=== PATIENT | female | born 1965 | race Caucasian/White ===

== ENCOUNTER → 2020-09-16 07:18 | Outpatient (BNVA) | payer MEDICARE, MEDICAID, SELFPAY | PROVIDERS: PCP Internal Medicine; Visit Provider Internal Medicine Endocrinology, Diabetes & Metabolism | DX: E10.65 Type 1 diabetes mellitus with hyperglycemia (principal); E10.649 Type 1 diabetes mellitus with hypoglycemia without coma; E78.5 Hyperlipidemia, unspecified; E55.9 Vitamin D deficiency, unspecified; E66.3 Overweight | CPT/HCPCS: 82947; 99212 ==

== ENCOUNTER → 2021-03-25 11:13 | Outpatient (BNVA) | payer MEDICARE, MEDICAID, SELFPAY | PROVIDERS: PCP Internal Medicine; Visit Provider Internal Medicine Endocrinology, Diabetes & Metabolism | DX: Z13.89 Encounter for screening for other disorder (principal) | CPT/HCPCS: 82947; 99212 ==

== ENCOUNTER 2021-03-25 12:17 | Outpatient (REF) | payer MEDICARE, MEDICAID, SELFPAY ==
[2021-03-25 14:32] LABS: Alanine Aminotransferase 8 U/L (0-31); Alkaline Phosphatase 79 U/L (39-117); Anion Gap 11 (12-20); Aspartate Amino Transferase 10 U/L (5-31); Bilirubin Total 0.4 mg/dL (0.0-1.0); Blood Urea Nitrogen 19 mg/dL (9-16); Calcium 10.1 mg/dL (8.4-10.2); Carbon Dioxide 27 mmol/L (22-29); Chloride 107 mmol/L (96-108); Cholesterol 175 mg/dL; Estimated Glomerular Filt Rate 55; Glucose Fasting 176 mg/dL (60-99); HDL Cholesterol 51 mg/dL; LDL Cholesterol Calculated 105 mg/dl; Potassium 4.9 mmol/L (3.3-5.1); Sodium 140 mmol/L (135-145); Total Protein 6.6 g/dL (6.5-8.0); Triglycerides 98 mg/dL
[2021-03-25 14:39] LABS: Free T4 (Free Thyroxine) 1.08 ng/dL (0.71-1.85); Thyroid Stimulating Hormone 1.69 uIU/mL (0.32-4.0)
[2021-03-25 14:50] LABS: Vitamin B12 357 pg/mL (200-900)
[2021-03-26 18:47] LABS: LDL Cholesterol Direct 108 mg/dL (<100)
== END 2021-03-25 12:18 | disposition home or self-care (01) ==
LOC: HO.10HDL 12:17
PROVIDERS: Visit Provider Internal Medicine Endocrinology, Diabetes & Metabolism
DX: E10.65 Type 1 diabetes mellitus with hyperglycemia (principal)
CPT/HCPCS: 36415; 80053; 80061; 82607; 82947; 83721; 84439; 84443; 99212

== ENCOUNTER → 2021-07-31 08:52 | Outpatient (BNVA) | payer MEDICARE, MEDICAID, SELFPAY | PROVIDERS: PCP Internal Medicine; Visit Provider Nurse Practitioner Gerontology | DX: E10.65 Type 1 diabetes mellitus with hyperglycemia (principal); E10.649 Type 1 diabetes mellitus with hypoglycemia without coma; E10.22 Type 1 diabetes mellitus with diabetic chronic kidney disease; N18.30 Chronic kidney disease, stage 3 unspecified; E78.5 Hyperlipidemia, unspecified; E55.9 Vitamin D deficiency, unspecified | CPT/HCPCS: 82947; 83036; 99212 ==

== ENCOUNTER → 2021-08-21 09:58 | Outpatient (BNVA) | payer MEDICARE, MEDICAID, SELFPAY | PROVIDERS: PCP Internal Medicine; Visit Provider Registered Nurse Diabetes Educator ==

== ENCOUNTER 2022-04-08 12:00 | Outpatient (REF) | payer MEDICARE, MEDICAID, SELFPAY ==
[2022-04-08 13:47] LABS: Alanine Aminotransferase 11 U/L (0-31); Albumin Level 4.1 g/dL (3.5-5.0); Alkaline Phosphatase 65 U/L (39-117); Anion Gap 11 (12-20); Aspartate Amino Transferase 12 U/L (5-31); Bilirubin Total 0.5 mg/dL (0.0-1.0); Blood Urea Nitrogen 11 mg/dL (9-16); Calcium 9.9 mg/dL (8.4-10.2); Carbon Dioxide 26 mmol/L (22-29); Chloride 104 mmol/L (96-108); Cholesterol 190 mg/dL; Estimated Glomerular Filt Rate > 60; Glucose Fasting 197 mg/dL (60-99); HDL Cholesterol 51 mg/dL; LDL Cholesterol Calculated 118 mg/dl; Potassium 4.5 mmol/L (3.3-5.1); Sodium 136 mmol/L (135-145); Total Protein 6.5 g/dL (6.5-8.0); Triglycerides 107 mg/dL
[2022-04-08 13:56] LABS: Free T4 (Free Thyroxine) 1.11 ng/dL (0.71-1.85); Thyroid Stimulating Hormone 1.44 uIU/mL (0.32-4.0); Vitamin D 25-OH Total 32.4 ng/mL (>30)
[2022-04-10 01:32] LABS: LDL Cholesterol Direct 112 mg/dL (<100)
== END 2022-04-08 12:01 | disposition home or self-care (01) ==
LOC: HO.LAB 12:00
PROVIDERS: PCP Internal Medicine; Visit Provider Nurse Practitioner Gerontology
DX: E10.65 Type 1 diabetes mellitus with hyperglycemia (principal); E55.9 Vitamin D deficiency, unspecified
CPT/HCPCS: 36415; 80053; 80061; 82306; 83721; 84439; 84443

== ENCOUNTER → 2022-04-14 07:48 | Outpatient (BNVA) | payer MEDICARE, MEDICAID, SELFPAY | PROVIDERS: PCP Internal Medicine; Visit Provider Internal Medicine Endocrinology, Diabetes & Metabolism | DX: E10.65 Type 1 diabetes mellitus with hyperglycemia (principal); E78.5 Hyperlipidemia, unspecified; Z96.41 Presence of insulin pump (external) (internal) | CPT/HCPCS: 82947; 83036; 99212 ==

== ENCOUNTER → 2022-04-24 11:02 | Outpatient (BNVA) | payer MEDICARE, MEDICAID, SELFPAY | PROVIDERS: PCP Internal Medicine; Visit Provider Registered Nurse Diabetes Educator | DX: E10.22 Type 1 diabetes mellitus with diabetic chronic kidney disease (principal); Z79.4 Long term (current) use of insulin; Z46.81 Encounter for fitting and adjustment of insulin pump | CPT/HCPCS: Q3014 ==

== ENCOUNTER 2022-06-26 08:34 | Outpatient (REF) | payer MEDICARE, MEDICAID, SELFPAY ==
[2022-06-26 09:35] LABS: Cholesterol 192 mg/dL; HDL Cholesterol 69 mg/dL; LDL Cholesterol Calculated 105 mg/dl; Triglycerides 91 mg/dL
== END 2022-06-26 08:35 | disposition home or self-care (01) ==
LOC: HO.LAB 08:34
PROVIDERS: PCP Internal Medicine; Visit Provider Internal Medicine Endocrinology, Diabetes & Metabolism
DX: E10.65 Type 1 diabetes mellitus with hyperglycemia (principal)
CPT/HCPCS: 36415; 80061

== ENCOUNTER → 2022-08-14 10:28 | Outpatient (BNVA) | payer MEDICARE, MEDICAID, SELFPAY | PROVIDERS: PCP Internal Medicine; Visit Provider Internal Medicine Endocrinology, Diabetes & Metabolism | DX: E10.65 Type 1 diabetes mellitus with hyperglycemia (principal); E10.649 Type 1 diabetes mellitus with hypoglycemia without coma; E10.22 Type 1 diabetes mellitus with diabetic chronic kidney disease; N18.30 Chronic kidney disease, stage 3 unspecified; K21.00 Gastro-esophageal reflux disease with esophagitis, without bleeding; E78.5 Hyperlipidemia, unspecified; E55.9 Vitamin D deficiency, unspecified; Z79.4 Long term (current) use of insulin; Z96.41 Presence of insulin pump (external) (internal); Z46.81 Encounter for fitting and adjustment of insulin pump; Z91.14 Patient's other noncompliance with medication regimen | CPT/HCPCS: 82947; 83036; 99211; 99212 ==

== ENCOUNTER 2023-06-22 15:17 | Outpatient (AMB) | payer MEDICARE, MEDICAID, SELFPAY ==
[2023-06-22 15:18] VITALS: BP 102/58; PULSE 98; BMI 25.5
--- NOTE | 2023-06-22 15:18 | MHC.OFFVIS ---
Intake Vital Signs 06/22/23 15:18 Height 5 ft 9 in Weight 172 lb 13.478 oz BMI 25.5 BP 102/58 L Blood Pressure Location Lt brachial Position Sitting Pulse 98 Pulse Source Pulse Oximeter Intake Visit Reasons: DM Intake Note: Patient present today to follow up on Type 1 Diabetes Mellitus. Patient receives DME supplies through: [facility] Medical Last Diabetic Eye exam: 2020 Last Podiatry Visit: None Random Glucose:80 mg/dl HgA1C: 9.9% [place] Machine Operator Required: No Accompanied by: Self / Same As Patient Allergies No Known Allergies [No Known Allergies*] Allergy (Verified 06/22/23 15:22) HPI HPI Comments History of Present Illness Details Patient is a 57-year-old female with DM type 1 diagnosed at age 5 who presents for management of diabetes. . Patient has no symptoms until blood glucose is down to 23mg/dl. Past medical history: Diabetes type 1, depression, CKD3 Micro and macrovascular complications: none known Diabetes medications: Humalog via Tandem pump Continuous glucose monitoring: She is currently not on a sensor. Point care downloads show 4% in target range with 96% hyperglycemia and no hypoglycemia Basal IQ on 100% Average suspensions per day 52% basal, 48% food bolus % correction bolus average daily dose 37.1 units/day Cartridge, tubing and cannula change every 6 days. Basal settings at midnight 0.90 U/H 6:00 am 0.850 U/H Active insulin is 4 hours. Carbohydrate ratio 12 am 12 10 am 12 Sensitivities 12 am 55 12 pm 55 5 pm 55 Target blood glucose is 120. She has hypoglycemia unawareness. Symptoms reported: numbness, tingling, cramping in lower extremities Hypoglycemia: multiple times a day, no symptoms. Infrequent lows Hyperglycemia: denies urinary frequency, nocturia, polydypsia Exercise: walks a mile twice a day Telephone Worker - CDE education: in the past Foster Care Case Manager: denies Dental exam: few years ago Ophthalmology evaluation: needs to see optho Laboratory Tests 12/06/18 03/25/21 03/25/21 12:15 11:36 12:21 Creatinine 1.05 Estimated GFR 55 Hgb A1c (Clinic) 7.5 H C-Peptide <0.10 L Triglycerides 98 Cholesterol 175 LDL Cholesterol Di rect LDL Cholesterol, C alc 105 HDL Cholesterol 51 TSH 1.69 Free T4 1.08 03/25/21 12:21 Creatinine Estimated GFR Hgb A1c (Clinic) C-Peptide Triglycerides Cholesterol LDL Cholesterol Di rect 108 H LDL Cholesterol, C alc HDL Cholesterol TSH Free T4 PFSH Medical History (Updated 07/31/21 @ 10:27 by ZENIA Smith) 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 Mother No problems noted. Paternal Grandmother Diabetes Social History (Updated 08/14/22 @ 10:37 by Lelia Gibson [facility]) Household Members: Significant Other and Children Household Members Other:: boyfriend, son Alcohol intake: never Patient Tobacco Use Status: Current everyday Tobacco user Tobacco use type: Cigarette Cigarettes Per Day: 18 Substance Use Type: Marijuana Physical Exam Vital Signs: Last Vital Signs Pulse 98 06/22/23 15:18 BP 102/58 L 06/22/23 15:18 BMI result Body Mass Index 25.5 Results AMB Hemoglobin A1c AMB Hemoglobin A1c 9.9 % Last Edit by Catherine Albercht on 06/22/23 15:38 Results Reviewed Results Reviewed: 06/22/23 15:27 Glucose, Whole Blood Routine Laboratory Last Values Glucose (Clinic) 80 mg/dL (60-115) 06/22/23 15:27 Assessment & Plan Assessment & Plan (1) Diabetes type 1, uncontrolled: Code(s): E10.65 - Type 1 diabetes mellitus with hyperglycemia Plan: This 57-year-old white female with a history of longstanding type 1 diabetes being managed with the T-slim X 2 pump with excellent glycemic control but poor TIRand no known microvascular or macrovascular complications but reported history of CKD Plan is to have the patient meet with the line maintenance supervisor again to initiate control IQ. We also talked about refined carbohydrate counting and entering boluses prior to eating. I did not make any changes to the insulin pump settings today. Can increase the basals at 00:00 to 1.0 units/hour at 06:00 to 0.9 units per (2) Dyslipidemia: Code(s): E78.5 - Hyperlipidemia, unspecified Plan: Admits to noncompliance with the atorvastatin. Patient will restart atorvastatin 40 mg q.d. and recheck lipid profile about 6 weeks time Orders: Orders AMB Hemoglobin A1c Today E10.22 - Type 1 diabetes mellitus with diabetic chronic kidney disease Basic Metabolic Panel Today E10.65 - Type 1 diabetes mellitus with hyperglycemia Lipid Panel Today E10.65 - Type 1 diabetes mellitus with hyperglycemia Microalbumin, Random (w Creat) Today E10.65 - Type 1 diabetes mellitus with hyperglycemia Coding Level of Care Code Est Pt Level 4 (21035) Diagnoses Diabetes type 1, uncontrolled E10.65 Dyslipidemia E78.5
[2023-06-22 15:32] LABS: Glucose, Whole Blood 80 mg/dL (60-115)
== END 2023-06-22 16:14 | disposition home or self-care (01) ==
PROVIDERS: PCP Internal Medicine; Visit Provider Internal Medicine Endocrinology, Diabetes & Metabolism
DX: E10.65 Type 1 diabetes mellitus with hyperglycemia (principal); E78.5 Hyperlipidemia, unspecified; E10.22 Type 1 diabetes mellitus with diabetic chronic kidney disease
CPT/HCPCS: 99214

== ENCOUNTER → 2023-06-22 15:17 | Outpatient (BNVA) | payer MEDICARE, MEDICAID, SELFPAY | PROVIDERS: PCP Internal Medicine; Visit Provider Internal Medicine Endocrinology, Diabetes & Metabolism | DX: E10.65 Type 1 diabetes mellitus with hyperglycemia (principal); E78.5 Hyperlipidemia, unspecified; Z96.41 Presence of insulin pump (external) (internal) | CPT/HCPCS: 82947; 83036; 99212 ==

== ENCOUNTER 2024-01-05 10:55 | Outpatient (AMB) | payer MEDICARE, MEDICAID, SELFPAY ==
[2024-01-05 10:59] VITALS: BP 104/56; PULSE 95; BMI 26.0
--- NOTE | 2024-01-05 10:59 | MHC.OFFVIS ---
Intake Vital Signs 01/05/24 10:59 Height 5 ft 9 in Weight 176 lb 2.389 oz BMI 26.0 BP 104/56 L Blood Pressure Location Lt brachial Position Sitting Pulse 95 Pulse Source Pulse Oximeter Intake Visit Reasons: [id number] Intake Note: Patient presents today to follow up on D1MT. Last Diabetic Eye exam:Over 2 years Last Podiatry Visit: Doesn't have one. Random Glucose: 62 mg/dl 11:10am rechecked 74 mg/dl 11:28am HgA1c: 7.6% Optimization Engineer Required: No Accompanied by: Self / Same As Patient Allergies No Known Allergies [No Known Allergies*] Allergy (Verified 01/05/24 11:04) HPI HPI Comments History of Present Illness Details Patient is a 58-year-old female with DM type 1 diagnosed at age 5 who presents for management of diabetes. . Patient has no symptoms until blood glucose is down to 23mg/dl. Past medical history: Diabetes type 1, depression, CKD3 Micro and macrovascular complications: none known Diabetes medications: Humalog via Tandem pump. She is using basal IQ but not control IQ Continuous glucose monitoring: Sensor download shows she is using the sensor 87.7% of time. Average glucose is 213 with G mi of 8.4%. 44% range with 56% hyperglycemia and no hypoglycemia. Pen shows elevated point cares from noon throughout the day without spikes postprandially Basal IQ on 100% Average suspensions per day 54% basal, 46% food bolus % correction bolus average daily dose 37.2 units/day Cartridge, tubing and cannula change every 6 days. Basal settings at midnight 1 U/H 6:00 am 0.9 U/H Active insulin is 4 hours. Carbohydrate ratio 12 am 12 10 am 12 Sensitivities 12 am 60 12 pm 60 5 pm 60 Target blood glucose is 120. She has hypoglycemia unawareness. Symptoms reported: numbness, tingling, cramping in lower extremities Hypoglycemia: multiple times a day, no symptoms. 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 Technical Sales Representative - CDE education: in the past Corrugator: denies Dental exam: few years ago Ophthalmology evaluation: needs to see optho Laboratory Tests 12/06/18 03/25/21 03/25/21 12:15 11:36 12:21 Creatinine 1.05 Estimated GFR 55 Hgb A1c (Clinic) 7.5 H C-Peptide <0.10 L Triglycerides 98 Cholesterol 175 LDL Cholesterol Di rect LDL Cholesterol, C alc 105 HDL Cholesterol 51 TSH 1.69 Free T4 1.08 03/25/21 12:21 Creatinine Estimated GFR Hgb A1c (Clinic) C-Peptide Triglycerides Cholesterol LDL Cholesterol Di rect 108 H LDL Cholesterol, C alc HDL Cholesterol TSH Free T4 PFSH Medical History (Updated 07/31/21 @ 10:27 by ZENIA Smith) 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 Mother No problems noted. Paternal Grandmother Diabetes Social History Household Members: Significant Other and Children Household Members Other:: boyfriend, son Alcohol intake: never Patient Tobacco Use Status: Current everyday Tobacco user Tobacco use type: Cigarette Cigarettes Per Day: 18 Substance Use Type: Marijuana Physical Exam Vital Signs: Last Vital Signs Pulse 95 01/05/24 10:59 BP 104/56 L 01/05/24 10:59 BMI result Body Mass Index 26.0 Absence of Cushingoid features. Absence of acromegalic features. Neck exam reveals nl size thyroid about 15 gms. No thyroid nodules palpable. No carotid bruits present. Lungs CTA. Heart S1 S2, Reg R/R. No M/R/ G. Skin exam reveals absence of vitiligo or acanthosis nigricans. Abdominal exam reveals Soft NT/ND with NA BS. No organomegaly present. Extrem Other: Visual exam of foot performed. No ulcerations or open lesions. No onchomycosis, no callouses.Pulses 2 + distally. Sensation intact to monofilament exam. Vibratory sensation sensed 10 seconds in right, 10 seconds in left with 128 Hz tuning fork Results AMB Hemoglobin A1c AMB Hemoglobin A1c 7.6 % Last Edit by NATHALY Oswald on 01/05/24 11:16 Results Reviewed Results Reviewed: Laboratory Last Values Glucose (Clinic) 74 mg/dL (60-115) 01/05/24 11:28 Hgb A1c (Clinic) 7.6 % (4.0-6.0) H 01/05/24 11:11 Assessment & Plan Assessment & Plan (1) Diabetes type 1, uncontrolled: Code(s): E10.65 - Type 1 diabetes mellitus with hyperglycemia Plan: This 58-year-old white female with a history of longstanding type 1 diabetes being managed with the T-slim X 2 pump with fair deteriorate glycemic control but poor TIRand no known microvascular or macrovascular complications but reported history of CKD Plan is to have the patient meet with the family educator again to initiate control IQ. We also talked about refined carbohydrate counting and entering boluses prior to eating. Can increase the basals at 06:00 to 1 units per hr. She will have her daughter help her make the change or make the change when she sees the family educator. We also talked about potentially changing the pump to a tandem Mobi or Omnipod oriLet . She will go for lipid profile and microalbumin to creatinine ratio (2) Dyslipidemia: Code(s): E78.5 - Hyperlipidemia, unspecified Plan: Admits to noncompliance with the atorvastatin. Patient will restart atorvastatin 40 mg q.d. and recheck lipid profile about 6 weeks time Orders: Orders AMB Hemoglobin A1c Today E10.22 - Type 1 diabetes mellitus with diabetic chronic kidney disease, Z13.9 - Encounter for screening, unspecified Coding Level of Care Code Est Pt Level 4 (42542) Diagnoses Diabetes type 1, uncontrolled E10.65 Dyslipidemia E78.5
[2024-01-05 11:11] LABS: Glucose, Whole Blood 62 mg/dL (60-115)
[2024-01-05 11:30] LABS: Glucose, Whole Blood 74 mg/dL (60-115)
== END 2024-01-05 11:29 | disposition home or self-care (01) ==
PROVIDERS: PCP Internal Medicine; Visit Provider Internal Medicine Endocrinology, Diabetes & Metabolism
DX: Z13.9 Encounter for screening, unspecified (principal); E10.22 Type 1 diabetes mellitus with diabetic chronic kidney disease; E10.65 Type 1 diabetes mellitus with hyperglycemia; E78.5 Hyperlipidemia, unspecified
CPT/HCPCS: 99214

== ENCOUNTER → 2024-01-05 10:55 | Outpatient (BNVA) | payer MEDICARE, MEDICAID, SELFPAY | PROVIDERS: PCP Internal Medicine; Visit Provider Internal Medicine Endocrinology, Diabetes & Metabolism | DX: E10.65 Type 1 diabetes mellitus with hyperglycemia (principal); E10.22 Type 1 diabetes mellitus with diabetic chronic kidney disease; N18.9 Chronic kidney disease, unspecified; E78.5 Hyperlipidemia, unspecified; Z79.4 Long term (current) use of insulin; Z46.81 Encounter for fitting and adjustment of insulin pump | CPT/HCPCS: 82947; 83036; 99212 ==

== ENCOUNTER 2024-04-10 10:28 | Outpatient (AMB) | payer MEDICARE, MEDICAID, SELFPAY ==
[2024-04-10 10:43] VITALS: BP 126/74; BMI 26.0
--- NOTE | 2024-04-10 10:43 | A.OFFVIS_ITS ---
Vital Signs 04/10/24 10:43 Height 5 ft 9 in Weight 176 lb 5.917 oz BMI 26.0 BP 126/74 Blood Pressure Location Lt brachial Position Sitting Intake Visit Reasons: f/u Type 1 DM-confirmed Intake Note: Patient present today to follow up on Type 1 Diabetes Mellitus. Patient receives DME supplies through: [facility] Medical Last Diabetic Eye exam: over 2 years ago Last Podiatry Visit: Doesn't have one Random Glucose: 248 mg/dl HgA1C: 7.9% Order Booker Required: No Accompanied by: Self / Same As Patient Allergies No Known Allergies [No Known Allergies*] Allergy (Verified 04/10/24 10:51) Medication List - Last Reconciled 04/10/24 by Jorge Pagan MD blood sugar diagnostic (Contour Next Test Strips) Test Bg 3 times per day as directed. Humalog U-100 Insulin (insulin lispro) Up to 100 units via insulin pump subcut daily; 30 days NS Lantus Solostar U-100 Insulin (insulin glargine) 21 units (0.21 mL) subcut QAM NS lorazepam 0.5 mg PO TID PRN 30 days HPI Comments Details: Patient is a 58-year-old female with DM type 1 diagnosed at age 5 who presents for management of diabetes. . Past medical history: Diabetes type 1, depression, CKD3 Micro and macrovascular complications: none known Diabetes medications: Humalog via Tandem pump. She is using basal IQ but not control IQ Continuous glucose monitoring: Sensor download shows she is using the sensor 94% of time. Average glucose is 191 with G mi of 8.4%. 48% range with 25% hyperglycemia and 2% hypoglycemia. Pen shows elevated point cares from noon throughout the day without spikes postprandially Basal IQ on 100% Average suspensions per day 54% basal, 46% food bolus % correction bolus average daily dose 40.49 units/day Cartridge, tubing and cannula change every 6 days. Basal settings at midnight 1 U/H 6:00 am 1 U/H Active insulin is 4 hours. Carbohydrate ratio 12 am 12 10 am 12 Sensitivities 12 am 60 12 pm 60 5 pm 60 Target blood glucose is 120. She has hypoglycemia unawareness. Symptoms reported: numbness, tingling, cramping in lower extremities Hypoglycemia: rare no symptoms. Infrequent lows Hyperglycemia: denies urinary frequency, nocturia, polydypsia Exercise: walks a mile twice a day Commissioning Specialist - CDE education: in the past Organisation And Methods Analyst: denies Dental exam: few years ago Ophthalmology evaluation: needs to see optho Laboratory Tests 12/06/18 03/25/21 03/25/21 12:15 11:36 12:21 Creatinine 1.05 Estimated GFR 55 Hgb A1c (Clinic) 7.5 H C-Peptide <0.10 L Triglycerides 98 Cholesterol 175 LDL Cholesterol Direct LDL Cholesterol, Calc 105 HDL Cholesterol 51 TSH 1.69 Free T4 1.08 03/25/21 12:21 Creatinine Estimated GFR Hgb A1c (Clinic) C-Peptide Triglycerides Cholesterol LDL Cholesterol Direct 108 H LDL Cholesterol, Calc HDL Cholesterol TSH Free T4 [facility] Medical History (Updated 07/31/21 @ 10:27 by ZENIA Smith) 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 Mother No problems noted. Paternal Grandmother Diabetes Social History Household Members: Significant Other and Children Household Members Other:: boyfriend, son Alcohol intake: never Patient Tobacco Use Status: Current everyday Tobacco user Tobacco use type: Cigarette Cigarettes Per Day: 18 Substance Use Type: Marijuana Physical Exam Vital Signs: Last Vital Signs BP 126/74 04/10/24 10:43 BMI result Body Mass Index 26.0 Absence of Cushingoid features. Absence of acromegalic features. Neck exam reveals nl size thyroid about 15 gms. No thyroid nodules palpable. No carotid bruits present. Lungs CTA. Heart S1 S2, Reg R/R. No M/R/ G. Skin exam reveals absence of vitiligo or acanthosis nigricans. Abdominal exam reveals Soft NT/ND with NA BS. No organomegaly present. Extrem Other: Visual exam of foot performed. No ulcerations or open lesions. No onchomycosis, no callouses.Pulses 2 + distally. Sensation intact to monofilament exam. Vibratory sensation sensed 10 seconds in right, 10 seconds in left with 128 Hz tuning fork Results AMB Hemoglobin A1c AMB Hemoglobin A1c 7.9 % Last Edit by NATHALY Oswald on 04/10/24 11:02 Results Reviewed Results Reviewed: Laboratory Last Values Glucose (Clinic) 248 mg/dL (60-115) H 04/10/24 10:53 Assessment & Plan Assessment & Plan (1) Diabetes type 1, uncontrolled: Code(s): E10.65 - Type 1 diabetes mellitus with hyperglycemia Category: Medical Plan: This 58-year-old white female with a history of longstanding type 1 diabetes being managed with the T-slim X 2 pump with fair deteriorate glycemic control but poor TIRand no known microvascular or macrovascular complications but reported history of CKD Plan is to have the patient meet with the cosmetology educator again to initiate control IQ. We also talked about refined carbohydrate counting and entering boluses prior to eating. make the change when she sees the cosmetology educator. We also talked about potentially changing the pump to a tandem Mobi or Omnipod or iLet . She has very interested the iLet pump and if her insurance will cover, would consider switching. She will go for lipid profile and microalbumin to creatinine ratio (2) Dyslipidemia: Code(s): E78.5 - Hyperlipidemia, unspecified Category: Medical Plan: Admits to noncompliance with the atorvastatin. Patient will restart atorvastatin 40 mg q.d. and recheck lipid profile about 6 weeks time Orders: Orders AMB Hemoglobin A1c Today E10.65 - Type 1 diabetes mellitus with hyperglycemia, Z13.9 - Encounter for screening, unspecified Coding Level of Care Code Est Pt Level 4 (69047) Complex EM visit Add On [id number] Diagnoses Diabetes type 1, uncontrolled E10.65 Dyslipidemia E78.5
[2024-04-10 10:57] LABS: Glucose, Whole Blood 248 mg/dL (60-115)
== END 2024-04-10 11:22 | disposition home or self-care (01) ==
PROVIDERS: PCP Internal Medicine; Visit Provider Internal Medicine Endocrinology, Diabetes & Metabolism
DX: E10.65 Type 1 diabetes mellitus with hyperglycemia (principal); E78.5 Hyperlipidemia, unspecified; Z13.9 Encounter for screening, unspecified
CPT/HCPCS: 99214; G2211

== ENCOUNTER → 2024-04-10 10:28 | Outpatient (BNVA) | payer MEDICARE, MEDICAID, SELFPAY | PROVIDERS: PCP Internal Medicine; Visit Provider Internal Medicine Endocrinology, Diabetes & Metabolism | DX: E10.22 Type 1 diabetes mellitus with diabetic chronic kidney disease (principal); E10.65 Type 1 diabetes mellitus with hyperglycemia; N18.30 Chronic kidney disease, stage 3 unspecified; E78.5 Hyperlipidemia, unspecified | CPT/HCPCS: 82947; 83036; 99212 ==

== ENCOUNTER 2024-04-25 15:40 | Outpatient (AMB) | payer MEDICARE, MEDICAID, SELFPAY ==
--- NOTE | 2024-04-25 16:13 | A.OFFVIS_ITS ---
Intake Intake Visit Reasons: T1DM/CONFIRMED [employer] Required: No Accompanied by: Self / Same As Patient Allergies No Known Allergies [No Known Allergies*] Allergy (Verified 04/10/24 10:51) HPI Comprehensive Diabetes Asmnt Most Recent Diabetes Results: Microalb/Creat Ratio TNP ug/mg cr 12/26/19 Cholesterol 192 mg/dL 06/26/22 HDL Cholesterol 69 mg/dL 06/26/22 Triglycerides 91 mg/dL 06/26/22 Creatinine 0.81 mg/dL (0.5-1.4) 04/08/22 Blood Urea Nitrogen 11 mg/dL (9-16) 04/08/22 Sodium 136 mmol/L (135-145) 04/08/22 Potassium 4.5 mmol/L (3.3-5.1) 04/08/22 Chloride 104 mmol/L (96-108) 04/08/22 Carbon Dioxide 26 mmol/L (22-29) 04/08/22 Calcium 9.9 mg/dL (8.4-10.2) 04/08/22 AST 12 U/L (5-31) 04/08/22 ALT 11 U/L (0-31) 04/08/22 Total Protein 6.5 g/dL (6.5-8.0) 04/08/22 Albumin 4.1 g/dL (3.5-5.0) 04/08/22 [facility] Medical History (Updated 07/31/21 @ 10:27 by AMRIT Smith-C) 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 Mother No problems noted. Paternal Grandmother Diabetes Social History Household Members: Significant Other and Children Household Members Other:: boyfriend, son Alcohol intake: never Patient Tobacco Use Status: Current everyday Tobacco user Tobacco use type: Cigarette Cigarettes Per Day: 18 Substance Use Type: Marijuana Assessment & Plan Assessment & Plan (1) Diabetes type 1, uncontrolled: Code(s): E10.65 - Type 1 diabetes mellitus with hyperglycemia Plan: Pump Assessment: Type of DM: type 1 Dx at age: 5y/o Previous DKA: Yes Current Insulin Rx: T-Slim with basal IQ Patient takes insulin as prescribed: Yes Patient? checks BG Dexcom G6 Downloaded meter today? yes Patient? reports glycemic control as: fair Most recent Hgb A1C: 7.9% 04/10/24 Frequency of low BG: few times a week Low BG treatment: Juice, candy Frequency of high BG: daily Does patient check Ketones? no, request for Keto strip priscription sent to Dr. Pagan Has pt been on a pump in the past? She is currently on pump Reviewed insulin pump basics today with Patient. Explained pros and cons of insulin pumps. Showed pt various pumps, infusion sets, and cgms currently available. Reviewed need to wear pump / and need to change infusion set every 3 days. Also stressed importance of frequent BG checks, 4x daily minimum or use pump that is integrated with CGM.? TDD:38 units Patient demonstrated motivation for continued insulin pump education and understands the need to complete education prior to starting insulin pump for best outcome. Pt is interested in iLet, is not aware if her current insulin pump is warranty. E-mail sent to [facility] to find out when patient's pump will be out of warranty Patient is also interested in switching from Humalog to Fiasp, message sent to Dr. Pagan to send prescription for Fiasp Follow-up with patient once we hear back about current insulin pump warranty Portions of this note were created using voice recognition software, please excuse any words or phrases that may have been misinterpreted. Medications: Discontinued Humalog U-100 Insulin (insulin lispro) Discontinued Reason: Doctor's Order Up to 100 units via insulin pump subcut daily; 30 days 30 mL 3RF NS E10.22 - Type 1 diabetes mellitus with diabetic chronic kidney disease Patient Instructions: DIABETES PROBLEMS HOMECARE INSTRUCTIONS? for High Blood Sugar and When to Test for Ketones Hyperglycemia is the technical term for high blood glucose (blood sugar). High blood sugar happens when the body has too little insulin or when the body can't use insulin properly. What causes hyperglycemia? A number of things can cause hyperglycemia: * If you have type 1, you may not have given yourself enough insulin. ? If you have type 2, your body may have enough insulin, but it is not as effective as it should be. * You ate more than planned or exercised less than planned. * You have stress from an illness, such as a cold or flu. * You have other stress, such as family conflicts or school or dating problems. How to lower your blood sugar level. ? Take medications as directed by physician. ? Drink extra water or noncaffeinated, nonsugared drinks to prevented hydration. ? Exercise if you are not sick However, if your blood sugar is above 250 mg/dl, check your urine for ketones. If you have ketones, do not exercise Exercising when ketones are present may make your blood sugar level go even higher. You'll need to work with your doctor to find the safest way for you to lower your blood sugar level. Regularly check blood sugar or urine for sugar and acetone during illness. Diabetic ketoacidosis (DKA) Is serious condition that can lead to diabetic coma (passing out for a long time) or even . When your cells don't get the glucose they need for energy, your body begins to burn fat for energy, which produces ketones. Ketones are chemicals that the body creates when it breaks down fat to use for energy. The body does this when it doesn?t have enough insulin to use glucose, the body?s normal source of energy. When ketones build up in the blood, they make it more acidic. They are a warning sign that your diabetes is out of control or that you are getting sick. Symptoms of Diabetic Ketoacidosis (DKA) ? DKA usually develops slowly. But when vomiting occurs, this life- threatening condition can develop in a few hours. Early symptoms include the following: ? Thirst or a very dry mouth ? Frequent urination ? High blood glucose (blood sugar) levels ? High levels of ketones in the urine ? Then, other symptoms appear: ? Constantly feeling tired ? Dry or flushed skin ? Nausea, vomiting, or abdominal pain ? (Vomiting can be caused by many illnesses, not just ketoacidosis. If vomiting continues for more than 2 hours, contact your health care provider.) ? Difficulty breathing ? Fruity odor on breath ? A hard time paying attention, or confusion When should you test for ketones? It is advisable to check for ketones under the following conditions when: Your blood glucose is higher than 250mg/dl. Feeling nauseated, throwing up, or have pains in your abdominal region. Have a cold or flu. Have general body fatigue. Feel thirsty or have a very dry mouth. Have flushed skin. Have a fruity breath or a hard time breathing. You feel perplexed or in fog. How to Test Urine for Ketones You can detect ketones with a simple urine test using a test strip, similar to a blood testing strip. Ask your health care provider when and how you should test for ketones. Many experts advise to check your urine for ketones when your blood glucose is more than 250 mg/dl. When you are ill (when you have a cold or the flu, for example), check for ketones every 4 to 6 hours. And check every 4 to 6 hours when your blood sugar is more than 250 mg/dl. Also, check for ketones when you have any symptoms of DKA. How to lower your blood sugar level. ? Take medications as directed by physician. ? Drink extra water or noncaffeinated, nonsugared drinks to prevented hydration. ? Exercise if you are not sick However, if your blood sugar is above 250 mg/dl, check your urine for ketones. If you have ketones, do not exercise Exercising when ketones are present may make your blood sugar level go even higher. You'll need to work with your doctor to find the safest way for you to lower your blood sugar level. Regularly check blood sugar or urine for sugar and acetone during illness Coding Level of Care Code Est Pt Level 1 (24096) Diagnoses Diabetes type 1, uncontrolled E10.65
== END 2024-04-25 16:43 | disposition home or self-care (01) ==
PROVIDERS: PCP Internal Medicine; Visit Provider Registered Nurse Diabetes Educator
DX: E10.65 Type 1 diabetes mellitus with hyperglycemia (principal)

== ENCOUNTER → 2024-04-25 15:40 | Outpatient (BNVA) | payer MEDICARE, MEDICAID, SELFPAY | PROVIDERS: PCP Internal Medicine; Visit Provider Registered Nurse Diabetes Educator | DX: E10.65 Type 1 diabetes mellitus with hyperglycemia (principal); Z79.4 Long term (current) use of insulin | CPT/HCPCS: 99211 ==

== ENCOUNTER 2024-05-02 15:59 | Outpatient (AMB) | payer MEDICARE, MEDICAID, SELFPAY ==
[2024-05-02 16:00] VITALS: BP 92/64; PULSE 84; O2SAT 98; BMI 25.5
--- NOTE | 2024-05-02 16:00 | A.OFFPC_ITS ---
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 insulin lispro (Humalog U-100 Insulin) Infuse up to 100 units via insulin pump subcutaneously; lorazepam 0.5 mg PO TID PRN 30 days urine glucose-ketones test As directed Tobacco use date assessed: 05/02/24 Dental Screening Dental Screen Date: 05/02/24 Did you have a dental visit in the last 12 months?: No Did you have a dental problem in the last 6 months where you did not have access to dental care?: No Was dental information given to patient?: Patient has dentist HPI re-establish care HPI Details Patient comes in today for her annual physical examination and to reestablish care - she was last seen here via telehealth visit on 02/13/2020 and was last here in person a year before on 01/12/2019 Patient states that she currently feels okay and has been following up with Dr. Pagan regularly for management of her type 1 diabetes She also was recently provided with a new insulin pump and states that her blood sugar is now starting to get back under control again States that she has been experiencing recurrent epigastric pain lately and notes that her abdominal pain got a lot worse recently after she ate some fried chicken from [employer] Has also noticed that her abdominal pain feels worse when she drinks some tea or coffee She used to take omeprazole for gastritis that was diagnosed on EGD back in 2019 but states that she ran out of her prescription a few months ago and has not taken the medication since She denies any nausea or vomiting No change in bowel habits noted - she has not noticed any blood in her stool recently Denies any headaches or dizziness Denies any exertional chest pains or increased shortness of breath but she states that she has been experiencing a recurrent pain /irritation/discomfort over an area on her right chest wall just lateral to her breast bone States that the pain feels like it is coming from deeper inside her chest and does not seem to be aggravated when she takes deep breath although it feels worse at times when she is doing some physical exertion She does not recall any recent injury or trauma to her chest She denies any acute urinary symptoms Patient as that she continues to experience anxiety frequently - states that she has been taking her lorazepam as sparingly as possible but now feels that she needs to be on something more for maintenance treatment She has not had her mammogram done in almost 10 years She also has not had a Pap smear and gynecology exam done in about 20 years She had her screening colonoscopy done together with her upper endoscopy back in 2019 - colonoscopy yielded hyperplastic polyps with no other significant abnormalities [facility] Medical History (Updated 05/03/24 @ 05:26 by Mata Oconnor MD) Breast cancer screening Smoker Anxiety Smoker in home Vitamin D deficiency Gastritis Type 1 diabetes mellitus with hyperglycemia, with long-term current use of insulin 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 Mother No problems noted. Paternal Grandmother Diabetes Social History Household Members: Significant Other and Children Household Members Other:: boyfriend, son Housing: Apartment Alcohol intake: never Patient Tobacco Use Status: Current everyday Tobacco user Tobacco use type: Cigarette Cigarette Packs Per Day: 2 Substance Use Type: Marijuana service: No Current occupational status: unemployed Cognitive needs: No Hearing needs: No Vision needs: No Questionnaire PHQ-9 Over the last 2 weeks, how often have you been bothered by any of the following problems? 1. Little interest or pleasure in doing things: nearly every day 2. Feeling down, depressed, or hopeless: nearly every day 3. Trouble falling or staying asleep, or sleeping too much: nearly every day 4. Feeling tired or having little energy: nearly every day 5. Poor appetite or overeating: nearly every day 6. Feeling bad about yourself - or that you are a failure or have let yourself or your family down: nearly every day 7. Trouble concentrating on things, such as reading the newspaper or watching television: nearly every day 8. Moving or speaking so slowly that other people could have noticed. Or the opposite - being so fidgety or restless that you have been moving around a lot more than usual: nearly every day 9. Thoughts that you would be better off or of hurting yourself in some way: nearly every day Total score: 27 Depression Screening Interpretation: Positive Depression Screening Follow-up: Existing condition and New Medication prescribed Depression Screening Done: Yes 72802 - PHQ-9 Billing: Yes Source: Developed by Drs. Jorge Bender, Crystal Roth, Landry Muller and colleagues, with an educational jonna from [employer]. Thrive Questionnaire Date Thrive assessed: 05/02/24 I am a: Patient What is your living situation today?: I have a steady place to live Within the past 12 months, did the food you bought not last and you didn't have the money to get more?: Never true Within the past 12 months, did you worry whether your food would run out before you got money to buy more?: Never true Do you have trouble paying for medicines?: No Do you have trouble getting transportation to medical appointments?: No Do you have trouble paying your heating and electricity bill?: No Do you have trouble taking care of your child, family member or friend?: No Do you have trouble with day-to-day activities such as bathing, preparing meals, shopping, managing finances, etc.?: No Are you currently unemployed and looking for a job?: No Please select the resources that you would like help with: None Currently or been in a relationship where the following occur: No concerns reported THRIVE Score: 0 AUDIT C Alcohol Use Questionnaire (AUDIT-C) 1. How often do you have a drink containing alcohol?: Never 3. How often do you have six or more drinks on one occasion?: Never Total Score: 0 Score Reviewed/Action Taken: Yes YONY-7 AMB Questionnaire YONY-7 Date YONY - 7 assessed: 05/02/24 Feeling nervous, anxious, or on edge: 3 = Nearly every day Not being able to stop or control worryin = Nearly every day Worrying too much about different things: 3 = Nearly every day Trouble relaxin = Nearly every day Being so restless that it is hard to sit still: 3 = Nearly every day Becoming easily annoyed or irritable: 3 = Nearly every day Feeling afraid as if something awful might happen: 3 = Nearly every day Total YONY-7 score (0-4 normal; 5-9 mild; 10-14 moderate; 15-21 severe): 21 Source: Developed by Drs. Jorge Bender, Crystal Roth, Landry Muller and colleagues, with an educational jonna from [employer]. YONY-7 Assessment Billing YONY-7 Assessment Tool: YONY-7 Assessment 94005 Review of Systems Const Denies chills, Reports fatigue, Denies fever(s), Denies headache(s) and Denies malaise Eyes Denies blurry vision, Denies change in vision, Denies irritation and Denies itchy eyes ENT Denies dysphagia, Denies dizziness, Denies otalgia, Denies headache(s), Denies nasal congestion, Denies neck pain, Denies odynophagia, Denies sinus pain and Denies sore throat Card Reports chest pain (on the right chest wall - see HPI), Denies rapid heart rate, Denies irregular heart rhythm, Denies palpitations and Denies dyspnea Resp Denies chest congestion, Denies cough, Denies dyspnea and Denies wheezing GI Reports abdominal pain (epigastric, on and off, worse when drinking coffee or tea - see HPI), Denies bloating, Denies constipation, Denies dysphagia, Denies heartburn, Denies diarrhea, Denies nausea, Denies odynophagia and Denies vomiting Denies hematuria, Denies urinary frequency, Denies dysuria, Denies urinary incontinence and Denies urinary urgency Musc Denies back pain, Denies arthralgias, Denies joint swelling, Denies muscle weakness and Denies neck pain Skin/Breast Denies breast pain, Denies breast mass, Denies change in pigmentation, Denies lesions, Denies rash and Denies unusual bruising Neuro Denies dizziness, Denies headache(s) and Denies paresthesias Psych Reports anxiety and Reports depression Endo Reports fatigue and Denies palpitations Jose D/Lymph Denies easy bruising Aller/Immun Denies itchy eyes and Denies wheezing Physical exam (Primary Care) Vital Signs: Last Vital Signs Pulse 84 05/02/24 16:00 BP 92/64 05/02/24 16:00 Pulse Ox 98 05/02/24 16:00 Oxygen Delivery Method Room Air 05/02/24 16:00 BMI result Body Mass Index 25.5 Tobacco/Smoking Status: Tobacco use Status Tobacco use date assessed 05/02/24 05/02/24 16:04 Patient Tobacco Use Status Current everyday Tobacco 05/02/24 16:04 Tobacco use type Cigarette 05/02/24 16:04 PHQ-9: PHQ-9 Score PHQ-9: Total score 27 05/02/24 16:44 Depression Screening Interpretation: Positive Depression Screening Follow-up: Existing condition and New Medication prescribed Thrive Assessment: Date of Thrive Assessment Date Thrive assessed 05/02/24 05/02/24 16:04 Currently or been in a relationship where the following occur: No concerns reported Const General: no acute distress, alert and awake Orientation/consciousness: patient oriented x3 HENMT Head: Yes normocephalic and Yes atraumatic Ears: external ears normal, TM's normal bilaterally and EAC's normal General nose exam: No nasal discharge present Face and sinus: Yes normal facial exam and Yes sinuses nontender Teeth and gingiva: dentition normal Throat: Yes posterior oropharynx normal and Yes tonsils normal (no TP congestion) Eyes Eyelids: Yes eyelids normal Conjunctivae: conjunctivae normal Pupils: Equal, round and reactive pupils present EOM: EOMs intact bilaterally Neck Neck: Yes no lymphadenopathy and Yes supple Thyroid: Thyroid normal Chest Other: (+) mild reproducible tenderness over her right anterior chest wall/ribs just lateral to the mid-sternum Resp Auscultation: clear to auscultation bilaterally, no rales and no wheezes Cardio Rate: regular rate Rhythm: regular rhythm Heart sounds: no murmurs GI Palpation (GI): Soft to palpation, Tenderness to palpation present (GI) (mild) in the epigastrum, no guarding, not rigid, No hepatosplenomegaly present and No Rebound tenderness present Auscultation: normal bowel sounds General: Yes no CVA tenderness Back/Spine/Pelvis Back: no CVA tenderness Thoracic/Lumbar Spine: thoracic and lumbar spine normal to inspection Skin Lesions: no lesions Rashes: no rashes Neuro General: patient oriented x3, moves all extremities, no focal motor deficits and CN's II-XI intact bilaterally Cranial nerves: Yes Equal, round and reactive pupils present Cognition (Neuro): normal cognition Gait exam (Neuro): Normal gait present Extrem General: Yes no clubbing, cyanosis or edema Assessment and Plan Assessment & Plan (1) Annual physical exam: Code(s): Z00.00 - Encounter for general adult medical examination without abnormal findings Plan: Check labs She is past due for her annual Pap smear/gynecology exam as well as her annual mammogram and these will be ordered for her She last had her screening colonoscopy done in 2019 - colonoscopy yielded hyperplastic polyps (2) Type 1 diabetes mellitus with hyperglycemia, with long-term current use of insulin: Code(s): E10.65 - Type 1 diabetes mellitus with hyperglycemia Plan: Her in-office HgbA1c was most recently at 7.9% when last checked on 04/10/2024 - goal is at least <7.0% Reinforced diabetic diet She is currently on insulin by an insulin pump, with a total daily dose of 38 units Follow-up with Dr. Pagan (endocrinology) as scheduled She also has not had an eye exam done recently and will be referred to Ophthalmology for this (3) Rib pain on right side: Code(s): R07.81 - Pleurodynia Plan: Will send patient for right rib x-rays for further evaluation (4) Gastritis: Code(s): K29.70 - Gastritis, unspecified, without bleeding Qualifiers: Gastritis type: unspecified gastritis Chronicity: unspecified Gastritis bleeding: without bleeding Qualified Code(s): K29.70 - Gastritis, unspecified, without bleeding Plan: EGD done with Dr. Uribe back in 2019 revealed (+) findings of gastritis Reinforced dietary restrictions Will start patient back on Omeprazole 20 mg QD Will also refer her back to GI for follow-up and further evaluation - have advised patient that she may possibly require a follow-up EGD as well Will also have GI determine whether she needs a follow-up colonoscopy now or in 10 years from her last colonoscopy (5) Vitamin D deficiency: Code(s): E55.9 - Vitamin D deficiency, unspecified Plan: Will recheck her Vitamin D level for follow up (6) Anxiety: Code(s): F41.9 - Anxiety disorder, unspecified Plan: Continue Lorazepam 0.5 mg TID PRN Will start her as well on Sertraline 50 mg QD (7) Smoker: Code(s): F17.200 - Nicotine dependence, unspecified, uncomplicated Plan: Patient is counseled on smoking cessation (8) Breast cancer screening: Code(s): Z12.39 - Encounter for other screening for malignant neoplasm of breast Qualifiers: Breast cancer screening modality: mammogram Qualified Code(s): Z12.31 - Encounter for screening mammogram for malignant neoplasm of breast Plan: Will send her for annual screening mammography - has not had a mammogram done in about 10 years (9) Cervical cancer screening: Code(s): Z12.4 - Encounter for screening for malignant neoplasm of cervix Plan: Will refer her to community outreach specialist for her annual pap smear and gynecology exam - states that she has not seen her banquet captain in about 20 years Plan Follow up in 4 months Orders: Orders Complete Blood Count Auto Diff 05/02/24 D64.9 - Anemia, unspecified, Z00.00 - Encounter for general adult medical examination without abnormal findings Lipid Panel 05/02/24 E78.00 - Pure hypercholesterolemia, unspecified, Z00.00 - Encounter for general adult medical examination without abnormal findings TSH reflex Free T4 05/02/24 E78.00 - Pure hypercholesterolemia, unspecified, Z00.00 - Encounter for general adult medical examination without abnormal findings Vitamin D 25-OH Total 05/02/24 E55.9 - Vitamin D deficiency, unspecified, Z00.00 - Encounter for general adult medical examination without abnormal findings Microalbumin, Random (w Creat) 05/02/24 E11.9 - Type 2 diabetes mellitus without complications, Z00.00 - Encounter for general adult medical examination without abnormal findings MM tomosynthesis screening BI 05/02/24 Z12.31 - Encounter for screening mammogram for malignant neoplasm of breast [facility] [place]. Panel Fast 05/02/24 E78.00 - Pure hypercholesterolemia, unspecified, Z00.00 - Encounter for general adult medical examination without abnormal findings UA CC w/rflx Micro + Cult 05/02/24 R30.0 - Dysuria, Z00.00 - Encounter for general adult medical examination without abnormal findings XR ribs RT min 3V w CXR1V 05/02/24 R07.81 - Pleurodynia Referrals Ophthalmology Referral E10.65 - Type 1 diabetes mellitus with hyperglycemia Gastroenterology Referral K29.70 - Gastritis, unspecified, without bleeding, Z12.11 - Encounter for screening for malignant neoplasm of colon [employer] Referral Z12.4 - Encounter for screening for malignant neoplasm of cervix Medications: New omeprazole 20 mg PO DAILY 90 days 90 caps 1RF sertraline 50 mg PO DAILY 90 days 90 tabs 1RF Discontinued insulin aspart (niacinamide) 100 unit/mL (Fiasp U-100 Insulin) Discontinued Reason: Doctor's Order Inject up to 100 units via insulin pump 30 mL 5RF Coding Level of Care Code Est Pt Prev Care 40-64y(18714) Diagnoses Annual physical exam Z00.00 Type 1 diabetes mellitus with hyperglycemia, with long-term current use of insulin E10.65 Rib pain on right side R07.81 Gastritis without bleeding, unspecified chronicity, unspecified gastritis type K29.70 Gastritis type: unspecified gastritis Chronicity: unspecified Gastritis bleeding: without bleeding Vitamin D deficiency E55.9 Anxiety F41.9 Smoker F17.200 Encounter for screening mammogram for malignant neoplasm of breast Z12.31 Breast cancer screening modality: mammogram Cervical cancer screening Z12.4 Additional Codes YONY-7 Assessment Billing - YONY-7 Assessment Tool: YONY-7 Assessment 43176 ([id number])
== END 2024-05-02 16:55 | disposition home or self-care (01) ==
PROVIDERS: PCP Internal Medicine; Visit Provider Internal Medicine
DX: Z00.00 Encounter for general adult medical examination without abnormal findings (principal); E10.65 Type 1 diabetes mellitus with hyperglycemia; F41.9 Anxiety disorder, unspecified; R07.81 Pleurodynia; K29.70 Gastritis, unspecified, without bleeding; E55.9 Vitamin D deficiency, unspecified; F17.210 Nicotine dependence, cigarettes, uncomplicated; Z12.31 Encounter for screening mammogram for malignant neoplasm of breast
CPT/HCPCS: 96127; 99396

== ENCOUNTER 2024-06-11 15:58 | Emergency (ER) | payer MEDICARE, MEDICAID, SELFPAY ==
[2024-06-11 16:26] VITALS: BP 139/73; PULSE 98; RESP 20; TEMP 36.9; O2SAT 97; BMI 24.8
--- NOTE | 2024-06-11 16:26 | ED.SKABFB ---
HPI - Skin/Abscess/Foreign Bdy General Chief complaint: Wound/Laceration Stated complaint: site of insulin pump swelling/redness/tenderness Time Seen by Provider: 06/11/24 18:27 Source: patient and family (patient's daughter) Mode of arrival: ambulatory Limitations: no limitations History of Present Illness ED Provider: Idania Mims PA-C HPI narrative: Patient is a 58 year old assigned female at with a history of diabetes presenting to the emergency department today with a possible abdominal abscess from her insulin pump. Patient states that after she removed her insulin pump yesterday, she noticed a red / hard shannan and is concerned that it is an abscess. Patient denies any dizziness, lightheadedness, abdominal pain, nausea, vomiting, fever, chills, blurry vision, double vision, loss of vision, chest pain, difficulty breathing, shortness of breath, back pain, night sweats, pain with urination, increased urinary frequency, increased urinary urgency, blood in her urine or stool, syncope or a near syncopal episode, recent trauma or falls, bowel incontinence, bladder incontinence, or any other complaints at this time. Relieving factors: none Exacerbating factors: none Context: none Associated symptoms: denies other symptoms Treatments prior to arrival: none Related Data Previous Rx's ?Medication ?Instructions ?Recorded blood sugar diagnostic (Contour #100 ea 04/20/23 Next Test Strips) lorazepam 0.5 mg tablet 0.5 mg PO TID PRN anxiety 30 days 03/08/24 #90 tabs urine glucose-ketones test #50 ea 04/26/24 omeprazole 20 mg capsule,delayed 20 mg PO DAILY 90 days #90 caps 05/02/24 release sertraline 50 mg tablet 50 mg PO DAILY 90 days #90 tabs 05/02/24 insulin lispro 100 unit/mL See Rx Instructions subcut 05/03/24 subcutaneous solution (Humalog .COMPLEX #20 mL U-100 Insulin) cephalexin 500 mg capsule 500 mg PO Q6H 7 days #28 caps 06/11/24 doxycycline hyclate 100 mg tablet 100 mg PO BID 7 days #14 tabs 06/11/24 Allergies Allergy/AdvReac Type Severity Reaction Status Date / Time No Known Allergies Allergy Verified 06/11/24 16:28 [No Known Allergies*] Review of Systems Constitutional: Constitutional: Reports no additional constitutional complaints, Denies chills, Denies fever(s) and Denies night sweats Eyes: Eyes: Reports no additional eye complaints, Denies blurry vision, Denies change in vision, Denies diplopia, Denies eye discharge, Denies loss of vision and Denies eye pain ENT: Denies dizziness Cardiovascular: Cardiovascular: Reports no additional cardiovascular complaints, Denies chest pain, Denies lightheadedness, Denies Loss of Consciousness and Denies dyspnea Respiratory: Respiratory: Reports no additional respiratory complaints and Denies dyspnea Gastrointestinal: Gastrointestinal: Reports no additional gastrointestinal complaints, Denies abdominal pain, Denies melena, Denies hematochezia, Denies change in bowel habits and Denies change in stool character Comments: possible abscess Genitourinary: Genitourinary: Denies hematuria, Denies urinary frequency, Denies dysuria, Denies urinary incontinence, Denies urinary hesitancy and Denies urinary urgency Musculoskeletal: Musculoskeletal: Reports no additional musculoskeletal complaints, Denies numbness and Denies tingling Neurologic: Denies dizziness, Denies loss of vision, Denies numbness and Denies tingling Psychiatric: Psychiatric: Reports no additional psychiatric complaints Endocrine: Endocrine: Reports no additional endocrine complaints Hematologic/Lymphatic: Hematologic/Lymphatic: Reports no additional hematologic/lymphatic complaints Allergic/Immunologic: Allergic/Immunologic: Reports no additional allergic/immunologic complaints PMFSH Past Medical History Attestation statement: The following information was validated with the patient. 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 Mother No problems noted. Paternal Grandmother Diabetes Social History Social History Household Members: Significant Other and Children Household Members Other:: boyfriend, son Housing: Apartment Alcohol intake: never Patient Tobacco Use Status: Current everyday Tobacco user Tobacco use type: Cigarette Cigarette Packs Per Day: 2 Substance Use Type: Marijuana Advance Directives: No Advance Directives Information Provided: No service: No Current occupational status: unemployed Cognitive needs: No Hearing needs: No Vision needs: No Physical Exam Vital Signs: Vital Signs: Last Vital Signs Temp 98.4 F 06/11/24 18:41 Pulse 98 06/11/24 18:41 Resp 20 06/11/24 18:41 BP 139/73 06/11/24 18:41 Pulse Ox 97 06/11/24 18:41 O2 Del Method Room Air 06/11/24 18:41 BMI result Body Mass Index 24.8 Const: General: cooperative, no acute distress, alert and awake Nutritional Appearance: well nourished Orientation/consciousness: patient oriented x3 Limitations: no limitations HEENT: Head: Yes normal to inspection and Yes atraumatic Ears: hearing grossly normal bilaterally and external ears normal General nose exam: Normal external nose present, no nasal discharge noted and no epistaxis Face and sinus: Yes normal facial exam, No abrasion and No laceration Mouth: Normal oral and palatal mucosa present, no drooling and no muffled voice Eyes: General: appearance normal, both eyes and all related structures Periorbital: periorbital findings normal Eyelids: Yes eyelids normal Conjunctivae: conjunctivae normal Pupils: Equal, round and reactive pupils present EOM: EOMs intact bilaterally Neck: Neck: Yes normal visual inspection, Yes full ROM and Yes no lymphadenopathy Chest: Chest palpation & inspection: normal inspection of the chest Resp: Effort & Inspection: normal respiratory effort and able to speak in complete sentences GI: Abdomen image: 1. area of erythematous and indurated skin with no fluctuance Neuro: General: patient oriented x3 and moves all extremities Cranial nerves: Yes Equal, round and reactive pupils present Cognition (Neuro): normal cognition Extrem: General: Yes normal to inspection, Yes full ROM and Yes capillary refill normal Psych: Appearance: grossly normal Mental Status: mental status grossly normal Affect: normal affect Attitude: cooperative Thought process: Normal thought process present Thought content: Normal thought content present Insight: Good insight present (Psych) Course Course Course Narrative: This is a Rapid Medical Exam performed in triage by Delilah Truong PA-C. Full HPI, ROS and PE to be performed by primary ED provider. 58 yo F w/PMHx DM, Gastritis, GERD, esophagitis, HLD, anxiety presenting to the ED c/o insulin pump site redness & pain s/p pulling pump off insulin pump. denies fever, chills PE: +erythematous/indurated area to R abdomen with ttp Plan: Labs Medical Decision Making Medical Decision Making MDM Narrative: Patient is a 58 year old assigned female at with a history of DM presenting to the emergency department today with a possible abdominal abscess. Patient's physical exam showed an erythematous area to the right abdomen with induration but no fluctuance. Patient's blood work showed a mildly elevated WBC count of 14.2 but otherwise unremarkable. I explained my physical exam findings as well as all test results to the patient. I answered all questions asked by the patient. I explained to the patient that the area is indurated and not fluctuant. I explained to the patient that this means an abcess is likely going to form there but at this time, it would be inappropriate for me to incise and drain it as there is nothing there to drain, yet. I stressed the importance of the patient taking her medication as directed (either prescribed or as the over the counter packaging recommends). I stressed the importance of the patient following up with her primary care provider and a general surgeons office. I stressed the importance of the patient returning to the emergency department immediately if her symptoms were to worsen or if she were to develop any dizziness, shortness of breath, difficulty breathing, chest pain, blurry vision, loss of vision, nausea, vomiting, abdominal pain, fever, chills, back pain, or any other complaints. Patient and the patient's daughter verbalized agreement and understanding with this treatment plan and discharge. Differential Diagnosis Differential Diagnoses: The differential diagnosis associated with the presentation includes Abscess Cellulitis Admission/Observation Consideration of admission/observation: Escalation of care including admission/observation considered Patient would have been admitted to the hospital had her work up had any findings where hospital admission was appropriate and her clinical presentation warranted hospital admission. Lab Data [facility] Lab Attestation statement: I reviewed the patient's lab results. My interpretation of these results are in the [facility] Rationale portion of this note. 06/11/24 16:59 06/11/24 16:59 Labs: Lab Results 06/11/24 Range/Units 16:59 WBC 14.2 H (4.8-10.8) X10*3/uL RBC 4.76 (4.20-5.50) X10*6/uL Hgb 14.8 (12.0-16.0) g/dl Hct 42.4 (37.0-47.0) % MCV 89.1 (80.0-98.0) fL MCH 31.1 (27.0-33.0) pg MCHC 34.9 (31.0-35.0) g/dl RDW 13.6 (11.0-16.0) % Plt Count 300 (160-400) X10*3/uL MPV 9.7 (9.4-12.3) fL Immature Gran % (Auto) 0.4 (0.0-0.4) % Neut % (Auto) 84.0 H (45-73) % Lymph % (Auto) 8.5 L (20-40) % Cameron % (Auto) 5.9 (2-11) % Eos % (Auto) 0.8 (0-4) % Baso % (Auto) 0.4 (0-2) % Lymph # (Auto) 1.2 (1.2-4.9) X10*3/uL Cameron # (Auto) 0.8 (0.1-1.2) X10*3/uL Eos # (Auto) 0.1 (0.0-0.4) X10*3/uL Baso # (Auto) 0.1 (0.0-0.2) X10*3/uL Abs Immat Gran (auto) 0.06 H (0.00-0.03) X10*3/uL Absolute Neuts (auto) 11.9 H (2.0-8.3) x10*3/uL Absolute Nucleated RBC 0.000 (0.0-0.012) X10*3/uL Nucleated RBC % (auto) 0.0 (0.0-0.2) /100WBC Sodium 139 (135-145) mmol/L Potassium 3.9 (3.3-5.1) mmol/L Chloride 106 (96-108) mmol/L Carbon Dioxide 25 (22-29) mmol/L Anion Gap 12 (12-20) BUN 13 (9-16) mg/dL Creatinine 0.94 (0.5-1.4) mg/dL Estim Creat Clear Calc 68.9 Estimated GFR > 60 Random Glucose 194 H (60-115) mg/dL Calcium 10.3 H (8.4-10.2) mg/dL Magnesium 2.0 (1.6-2.6) mg/dL Total Bilirubin 0.7 (0.0-1.0) mg/dL Direct Bilirubin 0.3 (0.0-0.5) mg/dL AST 14 (5-31) U/L ALT 10 (0-31) U/L Alkaline Phosphatase 78 (39-117) U/L Total Protein 6.2 L (6.5-8.0) g/dL Albumin 3.7 (3.5-5.0) g/dL Independent Historian Clinical information obtained from an independent historian. History obtained from or confirmed by: Other (patient's daughter provided additional history and confirmed the history provided by the patient.) Prescription Management I considered prescription management with: Antibiotic (patient prescribed an antibiotic for cellulitis vs. early abscess) Chronic Conditions Patient?s care impacted by: Diabetes Discharge Plan Discharge Clinical Impression: Abdominal wall abscess Patient Disposition: Home, Self-Care Instructions: Abscess (ED) Additional Instructions: Unfortunately, your abscess on your abdominal wall is indurated and not fluctuant - therefore it is not appropriate to attempt to drain at this time. Apply warm compresses to the area and take your antibiotic as prescribed. Follow up with your primary care provider and a general surgeon. Return to the emergency department immediately if your symptoms worsen or if you develop any dizziness, shortness of breath, difficulty breathing, chest pain, blurry vision, loss of vision, nausea, vomiting, abdominal pain, fever, chills, back pain, or any other complaints. Prescriptions: New cephalexin 500 mg capsule 500 mg PO Q6H 7 Days Qty: 28 0RF doxycycline hyclate 100 mg tablet 100 mg PO BID 7 Days Qty: 14 0RF No Action (DME) Contour Next Test Strips Strip See Rx Instructions .Route Qty: 100 11RF Rx Instructions: Test Bg 3 times per day as directed. lorazepam 0.5 mg tablet 0.5 mg PO TID PRN (Reason: anxiety) 30 Days Qty: 90 0RF (DME) urine glucose-ketones test Strip See Rx Instructions .Route Qty: 50 5RF Rx Instructions: As directed insulin lispro [Humalog U-100 Insulin] 100 unit/mL solution See Rx Instructions subcut .COMPLEX Qty: 20 1RF Rx Instructions: Infuse up to 100 units via insulin pump subcutaneously; omeprazole 20 mg capsule,delayed release(DR/EC) 20 mg PO DAILY 90 Days Qty: 90 1RF sertraline 50 mg tablet 50 mg PO DAILY 90 Days Qty: 90 1RF Referrals: [facility] [place] General Surgeons [Provider Group] (Call to establish and follow up with a general surgeon. ) Mata Oconnor MD [Primary Care Provider] - Interventions: ED Discharge Assessment Last Done: 06/11/24 18:41 Discharge Date/Time: 06/11/24 18:49 Print Language: Kazakh
[2024-06-11 17:04] LABS: MANUAL DIFF FLAG NO
[2024-06-11 17:07] LABS: Basophils Absolute Auto 0.1 X10*3/uL (0.0-0.2); Basophils Percent Auto 0.4 % (0-2); Eosinophils Absolute Auto 0.1 X10*3/uL (0.0-0.4); Eosinophils Percent Auto 0.8 % (0-4); Hematocrit 42.4 % (37.0-47.0); Hemoglobin 14.8 g/dl (12.0-16.0); Imm Gran Abs Auto 0.06 X10*3/uL (0.00-0.03); Imm Gran Pct Auto 0.4 % (0.0-0.4); Lymphocytes Absolute Auto 1.2 X10*3/uL (1.2-4.9); Lymphocytes Percent Auto 8.5 % (20-40); Mean Corpuscular HGB Conc 34.9 g/dl (31.0-35.0); Mean Corpuscular Hemoglobin 31.1 pg (27.0-33.0); Mean Corpuscular Volume 89.1 fL (80.0-98.0); Mean Platelet Volume 9.7 fL (9.4-12.3); Monocytes Absolute Auto 0.8 X10*3/uL (0.1-1.2); Monocytes Percent Auto 5.9 % (2-11); Neutrophils Absolute Auto 11.9 x10*3/uL (2.0-8.3); Platelet Count 300 X10*3/uL (160-400); Red Blood Count 4.76 X10*6/uL (4.20-5.50); Red Cell Distribution Width 13.6 % (11.0-16.0); White Blood Count 14.2 X10*3/uL (4.8-10.8)
[2024-06-11 17:21] LABS: Alanine Aminotransferase 10 U/L (0-31); Albumin Level 3.7 g/dL (3.5-5.0); Alkaline Phosphatase 78 U/L (39-117); Anion Gap 12 (12-20); Aspartate Amino Transferase 14 U/L (5-31); Bilirubin Direct 0.3 mg/dL (0.0-0.5); Bilirubin Total 0.7 mg/dL (0.0-1.0); Blood Urea Nitrogen 13 mg/dL (9-16); Calcium 10.3 mg/dL (8.4-10.2); Carbon Dioxide 25 mmol/L (22-29); Chloride 106 mmol/L (96-108); Creatinine Clr Calc Pharmacy 68.9; Estimated Glomerular Filt Rate > 60; Glucose Random 194 mg/dL (60-115); Potassium 3.9 mmol/L (3.3-5.1); Sodium 139 mmol/L (135-145); Total Protein 6.2 g/dL (6.5-8.0)
[2024-06-11 18:41] VITALS: BP 139/73; PULSE 98; RESP 20; TEMP 36.9; O2SAT 97
== END 2024-06-11 18:49 | disposition home or self-care (01) ==
PROVIDERS: Physician Assistant; Emergency Provider Emergency Medicine Emergency Medical Services; PCP Internal Medicine
DX: L02.211 Cutaneous abscess of abdominal wall (principal); E10.8 Type 1 diabetes mellitus with unspecified complications; F17.210 Nicotine dependence, cigarettes, uncomplicated; Z79.4 Long term (current) use of insulin; Z79.899 Other long term (current) drug therapy; Z96.41 Presence of insulin pump (external) (internal)
CPT/HCPCS: 36415; 80048; 80076; 83735; 85025; 99282; 99283

== ENCOUNTER 2024-08-15 09:47 | Outpatient (AMB) | payer MEDICARE, MEDICAID, SELFPAY ==
--- NOTE | 2024-08-15 07:48 | A.OFFVIS_ITS ---
Vital Signs 08/15/24 10:01 Height 5 ft 9 in Weight 167 lb 8.821 oz BMI 24.7 BP 128/78 Blood Pressure Location Rt brachial Position Sitting Pulse 80 Pulse Source Pulse Oximeter Intake Visit Reasons: T1DM Intake Note: Patient presents today to re-establish treatment for Type 1 Diabetes Mellitus: Last Diabetic eye exam was on: DUE Last Podiatry exam was on: Does not see a Audio Specialist Most recent HbA1c: 8.2%, 08/15/2024 Random Glucose- 129 mg/dL, Today Electric Powerline Examiner Required: No Accompanied by: Self / Same As Patient Allergies No Known Allergies [No Known Allergies*] Allergy (Verified 08/15/24 09:52) HPI Comments Details: Patient is a 58-year-old female with DM type 1 diagnosed at age 5 who presents for management of diabetes. She was last seen by Dr. Pagan 04/25/24. Hgb A1C 08/15/24 8.2 %, 7.9% 04/10/24, 7.6%01/02/24 Past medical history: Diabetes type 1, depression, CKD3 Micro and macrovascular complications: none known Diabetes medications: Humalog via Tandem pump. She is using basal IQ but not control IQ Dexcom average glucose: 162 14 day continuous glucose monitor report reviewed Glucose Managment indicator 7.2 % Days with CGM data 92.2 % TIme in ranges: Eleven % very high (above 250) 28 % high ?(181-250) 62 % in range ?(70-180] 3 % low (69-55) 1 % ?very low (below 54) Total daily dose of insulin 30 units 67% 20 units basal 33% 10 units bolus Backup insulin plan 20 units of Lantus with vial and syringe Humalog proximally 3 units per meal She is in control IQ 100% of the time Interpretation she has had a few overnight lows which is her usual wake time she sleeps late in the afternoon early evening. She reports the lows were related to over-correction with insulin Cartridge, tubing and cannula change every 4 days was doing every 6 days She was seen in the ER early June for an abscess at the pump site which resolved with the antibiotics. She had one previous abscess years ago Basal settings at midnight 1 U/H 6:00 am 1 U/H Active insulin is 4 hours. Carbohydrate ratio 12 am 12 10 am 12 Sensitivities 12 am 60 12 pm 60 5 pm 60 Target blood glucose is 120. She has hypoglycemia unawareness. 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 Mother No problems noted. Paternal Grandmother Diabetes Social History Household Members: Significant Other and Children Household Members Other:: boyfriend, son Housing: Apartment Alcohol intake: never Patient Tobacco Use Status: Current everyday Tobacco user Tobacco use type: Cigarette Cigarette Packs Per Day: 2 Substance Use Type: Marijuana service: No Current occupational status: unemployed Cognitive needs: No Hearing needs: No Vision needs: No Physical Exam Vital Signs: Last Vital Signs Pulse 80 08/15/24 10:01 BP 128/78 08/15/24 10:01 BMI result Body Mass Index 24.7 Const Other: Absence of Cushingoid features. Absence of acromegalic features. Neck exam reveals nl size thyroid about 15 gms. No thyroid nodules palpable. Heart S1 S2, Reg R/R. No M/R G. Skin exam reveals absence of vitiligo or acanthosis nigricans. Visual exam of foot performed. No ulcerations or open lesions. No inter digit maceration or fissuring. No onychomycosis, no callouses. Sensation intact to monofilament exam. Vibratory sensation is normal with 128 Hz tuning fork. Office Procedures Glucose Monitoring Details Details: see [facility] [id number] - Glucose monitoring, continuous-physician I&R Procedure code (CPT) selection complete Results AMB Hemoglobin A1c AMB Hemoglobin A1c 8.2 % Last Edit by NATHALY Jasso on 08/15/24 10:25 Results Reviewed Results Reviewed: Laboratory Last Values Glucose (Clinic) 129 mg/dL (60-115) H 08/15/24 10:15 Hgb A1c (Clinic) 8.2 % (4.0-6.0) H 08/15/24 10:02 Assessment & Plan Assessment & Plan (1) Type 1 diabetes mellitus with hyperglycemia, with long-term current use of insulin: Code(s): E10.65 - Type 1 diabetes mellitus with hyperglycemia Category: Medical Plan: 62-year-old type 1 diabetic with improving glycemic control based on most recent 2 week pump download. She has a history of neuropathy in his note recent microalbumin. We will continue with current settings and see her back in 3 months. She was advised to have blood work done. She has neuropathy and walks barefooted and was counseled regarding the risks of this. She had an abscess at her pump site in early June on an endorsed that she had gone 6 days without changing her set and now changes every 4 days. She was counseled to change her pump every 3 days and put less insulin in her pump we reviewed insertion technique need to thoroughly wash hands and prep site with alcohol. She will also switch over to an antibacterial soap on her arms and trunk. She was counseled that the 1st site of any infection had her pump or sensor site to go to urgent care. The patient had an opportunity to ask questions regarding treatment plan. The patient expressed understanding and agreement with the above treatment plan. The patient is aware they should contact our office by phone for worsening glucose readings or for any low blood sugars which may warrant a change in diabetes medication. Compliance is encouraged with medications and any followup testing/consults which may have been ordered. Orders: Orders AMB Glucose Monitoring Today E10.65 - Type 1 diabetes mellitus with hyperglycemia AMB Hemoglobin A1c Today E10.65 - Type 1 diabetes mellitus with hyperglycemia Referrals Ophthalmology Referral E10.65 - Type 1 diabetes mellitus with hyperglycemia Medications: New insulin glargine (Lantus U-100 Insulin) 20 units (0.2 mL) subcut DAILY 30 days PRN 10 mL 2RF prn pump failure MDD 20units insulin lispro (Humalog U-100 Insulin) up to 60 units daily via pump subcutaneously use as directed; 30 days 20 mL 11RF E10.65 - Type 1 diabetes mellitus with hyperglycemia insulin syringe-needle U-100 (BD Insulin Syringe) As directed prn pump failure up to qid 100 ea 1RF E10.65 - Type 1 diabetes mellitus with hyperglycemia glucagon HCl (Glucagon (HCl) Emergency Kit) until target blood sugar attained 1 mg IM Q20M 30 days PRN 2 ea 1RF hypoglycemia MDD 2 mg Patient Instructions: Symptoms of DKA (diabetic ketoacidosis): early: frequent urination, dry mouth, fatigue, feeling ill, severe symptoms: ketones in the urine, abdominal pain, nausea, vomiting and weakness. It is important to hydrate with sugar free liquids every 15-30 minutes and bring the sugars down to normal levels. If you are moderate or severe with ketones or unable to bring glucose to less than 200, go to the emergency room. Troubleshooting after starting new pod or inserting new insulin set: Occlusion, adhesive tape sensitivity, redness Check BG 2 hours after site change Safety information: Importance of a backup plan, for manual injections, proper prescriptions and emergency supplies ketone strips, and rules for testing for ketones Wear closed toe shoes, never walk barefooted and inspect the feet daily. For any signs of infection or open wound patient you should notify your PCP or go to urgent care/ER. The patient was counseled to achieve a target A1C of 7% (154 avg). Fasting blood sugars should be 90-130 in the morning and less than 180 two hours after meals. Reviewed the relationship between poor diabetic control and the development of complications. Coding Level of Care Code Tele Est Pt Level 5 (47511) Diagnoses Type 1 diabetes mellitus with hyperglycemia, with long-term current use of insulin E10.65 CPT Codes Details - CPT: 33481 - Glucose monitoring, continuous-physician I&R ([id number]) Time Spent (min) 60 Comment Reviewing labs/provider notes, glucose sensor/pump reports, face to face, chart doc
[2024-08-15 10:01] VITALS: BP 128/78; PULSE 80; BMI 24.7
[2024-08-15 10:20] LABS: Glucose, Whole Blood 129 mg/dL (60-115)
== END 2024-08-15 10:56 | disposition home or self-care (01) ==
LOC: HO.ENCR 09:47
PROVIDERS: PCP Internal Medicine; Visit Provider Nurse Practitioner Adult Health
DX: E10.65 Type 1 diabetes mellitus with hyperglycemia (principal)
CPT/HCPCS: 95251; 99215

== ENCOUNTER → 2024-08-15 09:47 | Outpatient (BNVA) | payer MEDICARE, MEDICAID, SELFPAY | PROVIDERS: PCP Internal Medicine; Visit Provider Nurse Practitioner Adult Health | DX: E10.65 Type 1 diabetes mellitus with hyperglycemia (principal); E10.22 Type 1 diabetes mellitus with diabetic chronic kidney disease; E10.649 Type 1 diabetes mellitus with hypoglycemia without coma; N18.30 Chronic kidney disease, stage 3 unspecified; Z96.41 Presence of insulin pump (external) (internal); Z79.4 Long term (current) use of insulin | CPT/HCPCS: 82947; 83036; 99212 ==

== ENCOUNTER 2024-09-11 16:43 | Outpatient (AMB) | payer MEDICARE, MEDICAID, SELFPAY ==
[2024-09-11 16:45] VITALS: BP 132/70; PULSE 90; O2SAT 96; BMI 24.7
--- NOTE | 2024-09-11 16:45 | A.OFFPC_ITS ---
Vital Signs 09/11/24 16:45 Height 5 ft 9 in Weight 167 lb BMI 24.7 BP 132/70 Blood Pressure Location Lt brachial Position Sitting Pulse 90 Pulse Source Pulse Oximeter Pulse Oximetry (%) 96 Oxygen Delivery Method Room Air Intake Visit Reasons: 6 Month F/U Cleaning Technician Required: No Accompanied by: Self / Same As Patient Allergies No Known Allergies [No Known Allergies*] Allergy (Verified 09/11/24 17:00) Medication List - Last Reconciled 09/11/24 by Mata Oconnor MD blood sugar diagnostic (Contour Next Test Strips) Test Bg 3 times per day as directed. glucagon HCl (Glucagon (HCl) Emergency Kit) 1 mg IM Q20M PRN 30 days MDD 2 mg Humalog U-100 Insulin (insulin lispro) up to 60 units daily via pump subcutaneously use as directed; NICHOLAS 1 medically necessary 30 days MDD 60 units NS insulin glargine (Lantus U-100 Insulin) 20 units (0.2 mL) subcut DAILY PRN 30 days MDD 20units insulin syringe-needle U-100 (BD Insulin Syringe) As directed prn pump failure up to qid lorazepam 0.5 mg PO TID PRN 30 days omeprazole 20 mg PO DAILY 90 days sertraline 50 mg PO DAILY 90 days urine glucose-ketones test As directed Tobacco use date assessed: 09/11/24 Dental Screening Dental Screen Date: 09/11/24 Did you have a dental visit in the last 12 months?: No Did you have a dental problem in the last 6 months where you did not have access to dental care?: No Was dental information given to patient?: Patient has dentist HPI 6 Month F/U HPI Details Patient comes in today for follow-up visit States that she has been experiencing increasing depression and anxiety for a while now but feels that her condition is getting worse over the past few months States that it is now a constant struggle for her to even try getting out of the house and she had to get her daughter to help her get here today for her appointment States that there are days where she feels so bad that she has even thought about hurting herself but states that she is too much of a coward to even go through that States that she is taking all of her medications as prescribed, including her Sertraline She also reports experiencing trouble sleeping at night often Relates that her Lorazepam has helped her sleep in the past but she would prefer not to keep taking it for fear of developing dependence on the medication States that her diabetes has been well controlled with her current regimen and she continues to follow-up with [facility] [place] regularly for her diabetes She denies any headaches or dizziness Denies any chest pains, no increased shortness of breath No nausea/vomiting, no abdominal pain No change in bowel habits noted [facility] Medical History (Updated 09/12/24 @ 05:43 by Mata Oconnor MD) Insomnia Depression Breast cancer screening Smoker Anxiety Smoker in home Vitamin D deficiency Gastritis Type 1 diabetes mellitus with hyperglycemia, with long-term current use of insulin 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 Mother No problems noted. Paternal Grandmother Diabetes Social History Household Members: Significant Other and Children Household Members Other:: boyfriend, son Housing: Apartment Alcohol intake: never Patient Tobacco Use Status: Current everyday Tobacco user Tobacco use type: Cigarette Cigarette Packs Per Day: 2 Substance Use Type: Marijuana service: No Current occupational status: unemployed Cognitive needs: No Hearing needs: No Vision needs: No Questionnaire PHQ-9 Over the last 2 weeks, how often have you been bothered by any of the following problems? 1. Little interest or pleasure in doing things: nearly every day 2. Feeling down, depressed, or hopeless: nearly every day 3. Trouble falling or staying asleep, or sleeping too much: nearly every day 4. Feeling tired or having little energy: nearly every day 5. Poor appetite or overeating: nearly every day 6. Feeling bad about yourself - or that you are a failure or have let yourself or your family down: nearly every day 7. Trouble concentrating on things, such as reading the newspaper or watching television: nearly every day 8. Moving or speaking so slowly that other people could have noticed. Or the opposite - being so fidgety or restless that you have been moving around a lot more than usual: nearly every day 9. Thoughts that you would be better off or of hurting yourself in some way: nearly every day Total score: 27 Depression Screening Interpretation: Positive Depression Screening Follow-up: Existing condition, In treatment, New Medication prescribed, Community Mental Health Worker F/U and Follow-up Visit Requested Depression Screening Done: Yes 96163 - PHQ-9 Billing: Yes Source: Developed by Drs. Jorge Bender, Crytsal Roth, Landry Muller and colleagues, with an educational jonna from [employer] Thrive Questionnaire Date Thrive assessed: 09/11/24 I am a: Patient What is your living situation today?: I have a steady place to live Within the past 12 months, did the food you bought not last and you didn't have the money to get more?: Never true Within the past 12 months, did you worry whether your food would run out before you got money to buy more?: Never true Do you have trouble paying for medicines?: No Do you have trouble getting transportation to medical appointments?: No Do you have trouble paying your heating and electricity bill?: No Do you have trouble taking care of your child, family member or friend?: No Do you have trouble with day-to-day activities such as bathing, preparing meals, shopping, managing finances, etc.?: No Are you currently unemployed and looking for a job?: No Please select the resources that you would like help with: None Currently or been in a relationship where the following occur: No concerns reported THRIVE Score: 0 AUDIT C Alcohol Use Questionnaire (AUDIT-C) 1. How often do you have a drink containing alcohol?: Never 3. How often do you have six or more drinks on one occasion?: Never Total Score: 0 Score Reviewed/Action Taken: Yes YONY-7 AMB Questionnaire YONY-7 Date YONY - 7 assessed: 09/11/24 Feeling nervous, anxious, or on edge: 3 = Nearly every day Not being able to stop or control worryin = Nearly every day Worrying too much about different things: 3 = Nearly every day Trouble relaxin = Nearly every day Being so restless that it is hard to sit still: 3 = Nearly every day Becoming easily annoyed or irritable: 3 = Nearly every day Feeling afraid as if something awful might happen: 3 = Nearly every day Total YONY-7 score (0-4 normal; 5-9 mild; 10-14 moderate; 15-21 severe): 21 Source: Developed by Drs. Jorge Bender, Crystal Roth, Landry Muller and colleagues, with an educational jonna from [employer] ([employer]). YONY-7 Assessment Billing YONY-7 Assessment Tool: YONY-7 Assessment 57649 Review of Systems Const Denies chills, Reports difficulty sleeping, Reports fatigue, Denies fever(s) and Denies headache(s) ENT Denies dysphagia, Denies dizziness, Denies otalgia, Denies headache(s), Denies neck pain, Denies odynophagia and Denies sore throat Card Denies chest pain, Denies irregular heart rhythm, Denies palpitations and Denies dyspnea Resp Denies chest congestion, Denies cough and Denies dyspnea GI Denies abdominal pain, Denies constipation, Denies dysphagia, Denies heartburn, Denies diarrhea, Denies nausea, Denies odynophagia and Denies vomiting Denies urinary frequency, Denies dysuria and Denies urinary urgency Musc Denies back pain, Denies arthralgias and Denies neck pain Skin/Breast Denies rash Neuro Denies dizziness, Denies headache(s) and Denies paresthesias Psych Reports anxiety, Reports depression, Reports difficulty concentrating, Reports panic attacks and Reports suicidal ideation Endo Reports fatigue and Denies palpitations Jose D/Lymph Denies easy bruising Physical exam (Primary Care) Vital Signs: Last Vital Signs Pulse 90 09/11/24 16:45 BP 132/70 09/11/24 16:45 Pulse Ox 96 09/11/24 16:45 Oxygen Delivery Method Room Air 09/11/24 16:45 BMI result Body Mass Index 24.7 Tobacco/Smoking Status: Tobacco use Status Tobacco use date assessed 09/11/24 09/11/24 16:49 Patient Tobacco Use Status Current everyday Tobacco 09/11/24 16:49 Tobacco use type Cigarette 09/11/24 16:49 PHQ-9: PHQ-9 Score PHQ-9: Total score 27 12/02/24 17:09 Depression Screening Interpretation: Positive Depression Screening Follow-up: Existing condition, In treatment, New Medication prescribed, Community Mental Health Worker F/U and Follow-up Visit Requested Thrive Assessment: Date of Thrive Assessment Date Thrive assessed 09/11/24 09/11/24 16:49 Currently or been in a relationship where the following occur: No concerns reported Const General: no acute distress and alert Orientation/consciousness: patient oriented x3 HENMT Ears: TM's normal bilaterally and EAC's normal Throat: Yes posterior oropharynx normal and Yes tonsils normal (no TP congestion) Neck Neck: Yes no lymphadenopathy and Yes supple Thyroid: Thyroid normal Resp Auscultation: clear to auscultation bilaterally, no rales and no wheezes Cardio Rate: regular rate Rhythm: regular rhythm Heart sounds: no murmurs GI Palpation (GI): Soft to palpation and nontender Auscultation: normal bowel sounds General: Yes no CVA tenderness Back/Spine/Pelvis Back: no CVA tenderness Thoracic/Lumbar Spine: thoracic and lumbar spine normal to inspection Skin Rashes: no rashes Neuro General: patient oriented x3 Cognition (Neuro): normal cognition Extrem General: Yes no clubbing, cyanosis or edema Psych Appearance: grossly normal Coding Level of Care Code Est Pt Level 4 (80209) Diagnoses Severe episode of recurrent major depressive disorder, without psychotic features F33.2 Depression Type: major depressive disorder Major depression recurrence: recurrent Active/Remission status: currently active Major depression episode severity: severe Psychotic features: without psychotic features Anxiety F41.9 Psychophysiological insomnia F51.04 Insomnia type: psychophysiologic Type 1 diabetes mellitus with hyperglycemia, with long-term current use of insulin E10.65 Gastritis without bleeding, unspecified chronicity, unspecified gastritis type K29.70 Gastritis type: unspecified gastritis Chronicity: unspecified Gastritis bleeding: without bleeding Vitamin D deficiency E55.9 Smoker F17.200 Additional Codes YONY-7 Assessment Billing - YONY-7 Assessment Tool: YONY-7 Assessment [id number] ([id number]) PHQ-9 - 00201 - PHQ-9 Billing: Yes ([id number]) Assessment & Plan Assessment & Plan (1) Depression: Code(s): F32.A - Depression, unspecified Category: Medical Qualifiers: Depression Type: major depressive disorder Major depression recurrence: recurrent Active/Remission status: currently active Major depression episode severity: severe Psychotic features: without psychotic features Qualified Code(s): F33.2 - Major depressive disorder, recurrent severe without psychotic features Plan: Will go ahead and increase her Sertraline now to 100 mg QD (patient reports that she was doing well on Citalopram in the past but she gained a lot of weight while on the Rx and the weight gain made her feel more depressed) Will also refer her to our outpatient psychiatry clinic for urgent consultation regarding her mood disorder, especially with her claims of recent thoughts of suicide although patient adds that she is too scared to even try it Have advised her that she should try reaching out for help at any time [place] if she ever feels the urge to hurt herself again (2) Anxiety: Code(s): F41.9 - Anxiety disorder, unspecified Category: Medical Plan: Continue Lorazepam 0.5 mg TID PRN although patient has expressed her reluctance to take this often due to her fear and concerns about developing dependence on the medication She does not wish to be prescribed anything else that might cause her to gain a lot of weight (3) Insomnia: Code(s): G47.00 - Insomnia, unspecified Category: Medical Qualifiers: Insomnia type: psychophysiologic Qualified Code(s): F51.04 - Psychophysiologic insomnia Plan: Discussed with patient that this is most likely related to her mood disorder Will start her on a trial of Trazodone 50 mg Q HS - reassured that this should not cause any significant weight gain on her part (4) Type 1 diabetes mellitus with hyperglycemia, with long-term current use of insulin: Code(s): E10.65 - Type 1 diabetes mellitus with hyperglycemia Category: Medical Plan: Her HgbA1c was most recently at 8.2% about a month ago although patient states that her blood sugar readings over the past month have improved lately - goal is HgbA1c of at least 7.0% or less Reinforced diabetic diet Continue Lantus 20 units Q HS and Humalog up to 60 units daily via her insulin pump Follow up with [facility] [place]ocr[place]ology as scheduled (5) Gastritis: Code(s): K29.70 - Gastritis, unspecified, without bleeding Category: Medical Qualifiers: Gastritis type: unspecified gastritis Chronicity: unspecified Gastritis bleeding: without bleeding Qualified Code(s): K29.70 - Gastritis, unspecified, without bleeding Plan: Dietary restrictions reinforced Continue Omeprazole 20 mg QD (6) Vitamin D deficiency: Code(s): E55.9 - Vitamin D deficiency, unspecified Category: Medical Plan: Corrected when last checked in 2021 Will continue to monitor her Vitamin D level regularly (7) Smoker: Code(s): F17.200 - Nicotine dependence, unspecified, uncomplicated Category: Social Hx Plan: Patient is counseled again on smoking cessation Plan Follow up in 3 months Orders: Referrals Psychiatry Outpatient Consultation Service F32.A - Depression, unspecified, F41.9 - Anxiety disorder, unspecified Medications: New trazodone 50 mg PO BEDTIME 30 days PRN 30 tabs 2RF sleep Changed From sertraline 50 mg PO DAILY 90 days 90 tabs 1RF To sertraline 100 mg PO DAILY 90 days 90 tabs 1RF
== END 2024-09-11 17:10 | disposition home or self-care (01) ==
PROVIDERS: PCP Internal Medicine; Visit Provider Internal Medicine
DX: F33.2 Major depressive disorder, recurrent severe without psychotic features (principal); F41.9 Anxiety disorder, unspecified; F51.04 Psychophysiologic insomnia; E10.65 Type 1 diabetes mellitus with hyperglycemia; K29.70 Gastritis, unspecified, without bleeding; E55.9 Vitamin D deficiency, unspecified; F17.200 Nicotine dependence, unspecified, uncomplicated

== ENCOUNTER → 2024-09-11 16:43 | Outpatient (BNVA) | payer MEDICARE, MEDICAID, SELFPAY | PROVIDERS: PCP Internal Medicine; Visit Provider Internal Medicine | DX: F33.2 Major depressive disorder, recurrent severe without psychotic features (principal); F41.9 Anxiety disorder, unspecified; F51.04 Psychophysiologic insomnia; E10.65 Type 1 diabetes mellitus with hyperglycemia; K29.70 Gastritis, unspecified, without bleeding; E55.9 Vitamin D deficiency, unspecified; F17.200 Nicotine dependence, unspecified, uncomplicated; Z71.6 Tobacco abuse counseling | CPT/HCPCS: 96127; 99212 ==

== ENCOUNTER 2025-04-06 09:56 | Outpatient (AMB) | payer MEDICARE, MEDICAID, SELFPAY ==
--- NOTE | 2025-04-06 08:01 | A.OFFVIS_ITS ---
Vital Signs 04/06/25 10:03 Height 5 ft 9 in Weight 160 lb 14.999 oz BMI 23.8 BP 116/90 H Blood Pressure Location Rt brachial Position Sitting Pulse 66 Pulse Source Pulse Oximeter Pulse Oximetry (%) 97 Oxygen Delivery Method Room Air Intake Visit Reasons: Diabetes Type 1 Intake Note: Patient presents today for a follow-up on Type 1 Diabetes Mellitus: Last Diabetic eye exam was on: DUE Last Podiatry exam was on: Patient does not see a Technical Healthcare Consultant Most recent HbA1c: 7.7%, 04/06/2025 Random Glucose: 181 mg/dL Inclusion Paraeducator Required: No Accompanied by: Self / Same As Patient Allergies No Known Allergies (No Known Allergies*) Allergy (Verified 04/06/25 09:57) HPI Comments Details: Patient is a 59-year-old female with DM type 1 diagnosed at age 5 who presents for management of diabetes. She was last seen in the fall: Hgb A1C 04/06/25 7.7%, 08/15/24 8.2 %, 7.9% 04/10/24, 7.6%01/02/24 Diabetes medications: Had been using an older tandem pump with basal IQ not control IQ. Humalog via Tandem pump. She stopped using the pump 2 months ago because she was tired of having something attached to her. She also would like to switch from Dexcom to freestyle Matt 3 as she is having some adherence problems with Dexcom and if her sugars are low she would like a more frequent update in glucose She has been taking 25 units of Lantus insulin at 4 in the morning Humalog she is taking 3-4 units t.i.d. She is using a correction factor of 1 unit for every 60 points above 170 Insulin to carb ratio 1:12 Dexcom average glucose: 196 14 day continuous glucose monitor report reviewed Glucose Managment indicator [ ] % Days with CGM data [ ] % TIme in ranges: Twenty-six % very high (above 250) 20 % high ?(181-250) 52 % in range ?(70-180] 2.2 % low (69-55) 0.9 % ?very low (below 54) By 6-7 in the evening her glucoses running higher . 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: in the past [facility] Medical History (Updated 04/06/25 @ 11:17 by Ariadna Livingston NP) Skin lesion of foot Skin lesion Insomnia Depression Breast cancer screening Smoker Anxiety Smoker in home Vitamin D deficiency Gastritis Type 1 diabetes mellitus with hyperglycemia, with long-term current use of insulin 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 Mother No problems noted. Paternal Grandmother Diabetes Social History Household Members: Significant Other and Children Household Members Other:: boyfriend, son Housing: Apartment Alcohol intake: never Patient Tobacco Use Status: Current everyday Tobacco user Tobacco use type: Cigarette Cigarette Packs Per Day: 2 Substance Use Type: Marijuana service: No Current occupational status: unemployed Cognitive needs: No Hearing needs: No Vision needs: No Physical Exam Vital Signs: Last Vital Signs Pulse 66 04/06/25 10:03 BP 116/90 H 04/06/25 10:03 Pulse Ox 97 04/06/25 10:03 Oxygen Delivery Method Room Air 04/06/25 10:03 BMI result Body Mass Index 23.8 Const Other: Absence of Cushingoid features. Absence of acromegalic features. Neck exam reveals nl size thyroid about 15 gms. No thyroid nodules palpable. Heart S1 S2, Reg R/R. No M/R G. Skin exam reveals absence of vitiligo or acanthosis nigricans. No edema Visual exam of foot performedappro 2-3 mm raised lesion with central black area. 2nd toe No ulcerations or open lesions. No inter digit maceration or fissuring. No onychomycosis, no callouses. Sensation intact to monofilament exam. Vibratory sensation is normal with 128 Hz tuning fork. Office Procedures Glucose Monitoring Details Details: see [facility] [id number] - Glucose monitoring, continuous-physician I&R Procedure code (CPT) selection complete Results AMB Hemoglobin A1c AMB Hemoglobin A1c 7.7 % Last Edit by NATHALY Jasso on 04/06/25 10:20 Results Reviewed Results Reviewed: Laboratory Last Values Glucose (Clinic) 181 mg/dL (60-115) H 04/06/25 10:07 Assessment & Plan Assessment & Plan (1) Diabetes type 1, uncontrolled: Code(s): E10.65 - Type 1 diabetes mellitus with hyperglycemia Category: Medical Plan: 59-year-old type 1 diabetic with the an A1c of 7.7%. She is interested in staying off the pump for awhile. The plan is to switch her over to Tresiba insulin as this will provide a more stable platform for her as a Lantus is not lasting more than 18 hours. She will continue with a carb ratio of 1:12 and a correction factor of 60 for every 60 points over 170. She is reluctant to decrease the starting point of when she starts a correction because she is fearful of lows. We will switch her over to freestyle Matt 3+ this will be a smaller sensor with better adhesion and she will be able to get updates on her glucose every 1 minute. She will consider going on the pump again sometime in the future. Her pump is out of warranty now. We discussed Omnipod versus ilet. She would be a better candidate for Omnipod as she is very fearful of low sugars and would have a difficult time with the loss of control on the ilet. She will return in 3 weeks' time with the an mold setter to review her sensor download She has been given a referral to Ophthalmology and was asked to contact our office if she has not heard anything in 1 month (2) Skin lesion: Code(s): L98.9 - Disorder of the skin and subcutaneous tissue, unspecified Category: Medical Plan: She has a skin lesion on her left foot 2nd toe. This started approximately 6 months ago and a was initially in response to an abrasion. There is a central area that is quite black and I think it would be reasonable for her to see a tension machine operator to rule out a melanoma. (3) Skin lesion of foot: Code(s): L98.9 - Disorder of the skin and subcutaneous tissue, unspecified Category: Medical Plan: see above Orders: Orders Creatinine Urine Today E10.65 - Type 1 diabetes mellitus with hyperglycemia AMB Hemoglobin A1c Today E10.65 - Type 1 diabetes mellitus with hyperglycemia Microalbumin, Random (w Creat) Today E10.65 - Type 1 diabetes mellitus with hyperglycemia AMB Glucose Monitoring Today E10.65 - Type 1 diabetes mellitus with hyperglycemia Referrals Dermatology Referral L98.9 - Disorder of the skin and subcutaneous tissue, unspecified Ophthalmology Referral E10.65 - Type 1 diabetes mellitus with hyperglycemia Medications: New FreeStyle Matt 3 [place] (blood-glucose,concrete form setter,cont) As directed for use with freestyle llibre 1 ea 0RF NS E10.65 - Type 1 diabetes mellitus with hyperglycemia blood-glucose sensor (FreeStyle Matt 3 Plus Sensor device) every 15 days 2 ea 11RF Tresiba FlexTouch U-200 (insulin degludec) 25 units (0.125 mL) subcut DAILY 6 mL 3RF 30 days NS pen needle, diabetic qid 150 ea 6RF Humalog KwikPen Insulin (insulin lispro) 1 unit for every 12 carbs, 1 unit for every 60 points above 170 takes approx 3-5 units tid before meals 1 sliding scale dose subcut USEASDIRECTD 6 mL 3RF 30 days MDD 15 NS Changed From blood sugar diagnostic (Contour Next Test Strips) Test Bg 3 times per day as directed. 100 ea 11RF E10.65 - Type 1 diabetes mellitus with hyperglycemia To blood sugar diagnostic (Contour Next Test Strips) Test Bg 3 times per day for sensor failure 100 ea 11RF E10.65 - Type 1 diabetes mellitus with hyperglycemia On Hold Humalog U-100 Insulin (insulin lispro) Hold Comment: Doctor's Order up to 60 units daily via pump subcutaneously use as directed; NICHOLAS 1 medically necessary 20 mL 11RF 30 days MDD 60 units NS E10.65 - Type 1 diabetes mellitus with hyperglycemia insulin glargine-yfgn Hold Comment: Doctor's Order 20 units (0.2 mL) subcut DAILY 30 days PRN 10 mL 0RF pump failure MDD 20 units NS Coding Level of Care Code Est Pt Level 4 (48184) Complex EM visit Add On G2211 Diagnoses Diabetes type 1, uncontrolled E10.65 Skin lesion L98.9 Skin lesion of foot L98.9 CPT Codes Details - CPT: 52141 - Glucose monitoring, continuous-physician I&R ([id number]) Time Spent (min) 35 Comment Time spent reviewing labs/provider notes, face to face, chart doc
[2025-04-06 10:03] VITALS: BP 116/90; PULSE 66; O2SAT 97; BMI 23.8
[2025-04-06 10:11] LABS: Glucose, Whole Blood 181 mg/dL (60-115)
== END 2025-04-06 10:44 | disposition home or self-care (01) ==
LOC: HO.ENCR 09:56
PROVIDERS: PCP Internal Medicine; Visit Provider Nurse Practitioner Adult Health
DX: E10.65 Type 1 diabetes mellitus with hyperglycemia (principal); L98.9 Disorder of the skin and subcutaneous tissue, unspecified
CPT/HCPCS: 95251; 99214

== ENCOUNTER → 2025-04-06 09:56 | Outpatient (BNVA) | payer MEDICARE, MEDICAID, SELFPAY | PROVIDERS: PCP Internal Medicine; Visit Provider Nurse Practitioner Adult Health | DX: E10.65 Type 1 diabetes mellitus with hyperglycemia (principal); L98.9 Disorder of the skin and subcutaneous tissue, unspecified | CPT/HCPCS: 82947; 83036; 99212 ==

== ENCOUNTER 2025-04-17 14:14 | Outpatient (AMB) | payer OTHER, MEDICARE, MEDICAID, SELFPAY ==
[2025-04-17 14:21] VITALS: BP 110/70; PULSE 75; O2SAT 97; BMI 24.1
--- NOTE | 2025-04-17 14:21 | A.OFFPC_ITS ---
Vital Signs 04/17/25 14:21 Height 5 ft 9 in Weight 163 lb 2 oz BMI 24.1 BP 110/70 Blood Pressure Location Lt brachial Position Sitting Pulse 75 Pulse Source Pulse Oximeter Pulse Oximetry (%) 97 Oxygen Delivery Method Room Air Intake Visit Reasons: anxiety, depression [place] Flaker Required: No Accompanied by: Self / Same As Patient Allergies No Known Allergies (No Known Allergies*) Allergy (Verified 04/17/25 14:48) Medication List - Last Reconciled 04/17/25 by Mata Oconnor MD blood sugar diagnostic (Contour Next Test Strips) Test Bg 3 times per day for sensor failure blood-glucose sensor (FreeStyle Matt 3 Plus Sensor device) every 15 days FreeStyle Matt 3 [place] (blood-glucose,smoking tobacco cutter operator,cont) As directed for use with freestyle llibre NS glucagon HCl (Glucagon (HCl) Emergency Kit) 1 mg IM Q20M PRN 30 days MDD 2 mg Humalog U-100 Insulin (insulin lispro) up to 60 units daily via pump subcutaneously use as directed; NICHOLAS 1 medically necessary 30 days MDD 60 units NS Held on 04/06/25. Instructions: Doctor's Order insulin aspart U-100 3-5 units tid with meals subcutaneously 3 times a day; 30 days NS insulin degludec 25 units (0.125 mL) subcut DAILY 30 days insulin glargine-yfgn 20 units (0.2 mL) subcut DAILY PRN 30 days MDD 20 units NS Held on 04/06/25. Instructions: Doctor's Order insulin syringe-needle U-100 As directed prn pump failure up to qid lorazepam 0.5 mg PO TID PRN 30 days omeprazole 20 mg PO DAILY 90 days pen needle, diabetic qid sertraline 100 mg PO DAILY 90 days trazodone 50 mg PO BEDTIME PRN 30 days Tresiba FlexTouch U-200 (insulin degludec) 25 units (0.125 mL) subcut DAILY 30 days NS urine glucose-ketones test As directed Tobacco use date assessed: 04/17/25 Dental Screening Dental Screen Date: 04/17/25 Did you have a dental visit in the last 12 months?: No Did you have a dental problem in the last 6 months where you did not have access to dental care?: No Was dental information given to patient?: Patient has dentist HPI anxiety, depression HPI Details Patient comes in today for her follow-up visit States that she feels okay She denies any headaches or dizziness Denies any chest pains, no shortness of breath No nausea/vomiting, no abdominal pain No change in bowel habits noted She is currently requesting for a referral to Urology to help address her issues with urinary frequency and overactive bladder She has also not seen Podiatry in a while now and would like to get a referral for her annual diabetic foot exam [facility] Medical History Skin lesion of foot Skin lesion Insomnia Depression Breast cancer screening Smoker Anxiety Smoker in home Vitamin D deficiency Gastritis Type 1 diabetes mellitus with hyperglycemia, with long-term current use of insulin 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 Mother No problems noted. Paternal Grandmother Diabetes Social History Household Members: Significant Other and Children Household Members Other:: boyfriend, son Housing: Apartment Alcohol intake: never Patient Tobacco Use Status: Current everyday Tobacco user Tobacco use type: Cigarette Cigarette Packs Per Day: 2 Substance Use Type: Marijuana service: No Current occupational status: unemployed Cognitive needs: No Hearing needs: No Vision needs: No Questionnaire PHQ-9 Over the last 2 weeks, how often have you been bothered by any of the following problems? 1. Little interest or pleasure in doing things: nearly every day 2. Feeling down, depressed, or hopeless: nearly every day 3. Trouble falling or staying asleep, or sleeping too much: nearly every day 4. Feeling tired or having little energy: nearly every day 5. Poor appetite or overeating: nearly every day 6. Feeling bad about yourself - or that you are a failure or have let yourself or your family down: several days 7. Trouble concentrating on things, such as reading the newspaper or watching television: not at all 8. Moving or speaking so slowly that other people could have noticed. Or the opposite - being so fidgety or restless that you have been moving around a lot more than usual: not at all 9. Thoughts that you would be better off or of hurting yourself in some way: more than half the days Total score: 18 Depression Screening Interpretation: Positive Depression Screening Follow-up: Existing condition, In treatment, New Medication prescribed, Community Mental Health Worker F/U and Follow-up Visit Requested Depression Screening Done: Yes 25050 - PHQ-9 Billing: Yes Source: Developed by Drs. Jorge Bender, Crystal Roth, Landry Muller and colleagues, with an educational jonna from [employer]. Thrive Questionnaire Date Thrive assessed: 04/17/25 I am a: Patient What is your living situation today?: I have a steady place to live Within the past 12 months, did the food you bought not last and you didn't have the money to get more?: Often true Within the past 12 months, did you worry whether your food would run out before you got money to buy more?: Often true Do you have trouble paying for medicines?: I choose not to answer this question Do you have trouble getting transportation to medical appointments?: I choose not to answer this question Do you have trouble paying your heating and electricity bill?: Yes Do you have trouble taking care of your child, family member or friend?: I choose not to answer this question Do you have trouble with day-to-day activities such as bathing, preparing meals, shopping, managing finances, etc.?: I choose not to answer this question Are you currently unemployed and looking for a job?: I choose not to answer this question Are you interested in more education?: I choose not to answer this question Please select the resources that you would like help with: Utilities Currently or been in a relationship where the following occur: I choose not to answer THRIVE Score: 3 AUDIT C Alcohol Use Questionnaire (AUDIT-C) 1. How often do you have a drink containing alcohol?: Never 3. How often do you have six or more drinks on one occasion?: Never Total Score: 0 Score Reviewed/Action Taken: Yes YONY-7 AMB Questionnaire YONY-7 Date YONY - 7 assessed: 04/17/25 Feeling nervous, anxious, or on edge: 3 = Nearly every day Not being able to stop or control worryin = Nearly every day Worrying too much about different things: 3 = Nearly every day Trouble relaxin = More than half the days Being so restless that it is hard to sit still: 1 = Several days Becoming easily annoyed or irritable: 3 = Nearly every day Feeling afraid as if something awful might happen: 2 = More than half the days Total YONY-7 score (0-4 normal; 5-9 mild; 10-14 moderate; 15-21 severe): 17 Source: Developed by Drs. Jorge Bender, Crystal Roth, Landry Muller and colleagues, with an educational jonna from [employer]. Review of Systems Const Denies chills, Reports difficulty sleeping, Reports fatigue, Denies fever(s) and Denies headache(s) ENT Denies dysphagia, Denies dizziness, Denies otalgia, Denies headache(s), Denies neck pain, Denies odynophagia and Denies sore throat Card Denies chest pain, Denies irregular heart rhythm, Denies palpitations and Denies dyspnea Resp Denies chest congestion, Denies cough and Denies dyspnea GI Denies abdominal pain, Denies constipation, Denies dysphagia, Denies heartburn, Denies diarrhea, Denies nausea, Denies odynophagia and Denies vomiting Denies difficulty voiding, Denies nocturia, Denies dysuria and Denies urinary urgency Musc Denies back pain, Denies arthralgias and Denies neck pain Skin/Breast Denies rash Neuro Denies dizziness, Denies headache(s) and Denies paresthesias Psych Reports anxiety, Reports depression, Reports difficulty concentrating, Reports panic attacks and Reports suicidal ideation Endo Reports fatigue and Denies palpitations Jose D/Lymph Denies easy bruising Physical exam (Primary Care) Vital Signs: Last Vital Signs Pulse 75 04/17/25 14:21 BP 110/70 04/17/25 14:21 Pulse Ox 97 04/17/25 14:21 Oxygen Delivery Method Room Air 04/17/25 14:21 BMI result Body Mass Index 24.1 Tobacco/Smoking Status: Tobacco use Status Tobacco use date assessed 04/17/25 04/17/25 14:24 Patient Tobacco Use Status Current everyday Tobacco 04/17/25 14:24 Tobacco use type Cigarette 04/17/25 14:24 PHQ-9: PHQ-9 Score PHQ-9: Total score 18 04/17/25 14:51 Depression Screening Interpretation: Positive Depression Screening Follow-up: Existing condition, In treatment, New Medication prescribed, Community Mental Health Worker F/U and Follow-up Visit Requested Thrive Assessment: Date of Thrive Assessment Date Thrive assessed 04/17/25 04/17/25 14:24 Currently or been in a relationship where the following occur: I choose not to answer Const General: no acute distress and alert HENMT Throat: Yes posterior oropharynx normal and Yes tonsils normal (no TP congestion) Neck Neck: Yes no lymphadenopathy and Yes supple Thyroid: Thyroid normal Resp Auscultation: clear to auscultation bilaterally, no rales and no wheezes Cardio Rate: regular rate Rhythm: regular rhythm Heart sounds: no murmurs GI Palpation (GI): Soft to palpation and nontender Auscultation: normal bowel sounds General: Yes no CVA tenderness Back/Spine/Pelvis Back: no CVA tenderness Thoracic/Lumbar Spine: thoracic and lumbar spine normal to inspection Skin Rashes: no rashes Neuro Cognition (Neuro): normal cognition Extrem General: Yes no clubbing, cyanosis or edema Psych Appearance: grossly normal Coding Level of Care Code Est Pt Level 4 (81979) Diagnoses Type 1 diabetes mellitus with hyperglycemia, with long-term current use of insulin E10.65 Gastritis without bleeding, unspecified chronicity, unspecified gastritis type K29.70 Gastritis type: unspecified gastritis Chronicity: unspecified Gastritis bleeding: without bleeding Vitamin D deficiency E55.9 Overactive bladder N32.81 Psychophysiological insomnia F51.04 Insomnia type: psychophysiologic Anxiety F41.9 Severe episode of recurrent major depressive disorder, without psychotic features F33.2 Depression Type: major depressive disorder Major depression recurrence: recurrent Active/Remission status: currently active Major depression episode severity: severe Psychotic features: without psychotic features Smoker F17.200 Additional Codes PHQ-9 - 41208 - PHQ-9 Billing: Yes ([id number]) Assessment & Plan Assessment & Plan (1) Type 1 diabetes mellitus with hyperglycemia, with long-term current use of insulin: Code(s): E10.65 - Type 1 diabetes mellitus with hyperglycemia Category: Medical Plan: Her HgbA1c was most recently at 7.7% a couple of weeks ago on 04/06/2025 (was previously at 8.2% back in August 2024) - goal is HgbA1c of at least 7.0% or less Reinforced diabetic diet Continue Tresiba 25 units Q HS and Humalog up to 60 units daily via her insulin pump Follow up with [facility] Endocrinology as scheduled As she has not had any follow-up labs done in a while, we will have patient go for repeat labs [place] for follow-up Per request, we will also refer her to podiatry for her annual diabetic foot exam (2) Gastritis: Code(s): K29.70 - Gastritis, unspecified, without bleeding Category: Medical Qualifiers: Gastritis type: unspecified gastritis Chronicity: unspecified Gastritis bleeding: without bleeding Qualified Code(s): K29.70 - Gastritis, unspecified, without bleeding Plan: Dietary restrictions reinforced Continue Omeprazole 20 mg QD (3) Vitamin D deficiency: Code(s): E55.9 - Vitamin D deficiency, unspecified Category: Medical Plan: Corrected when last checked in 2021 Will continue to monitor her Vitamin D level regularly (4) Overactive bladder: Code(s): N32.81 - Overactive bladder Category: Medical Plan: Will refer her to urology for further evaluation and management (5) Insomnia: Code(s): G47.00 - Insomnia, unspecified Category: Medical Qualifiers: Insomnia type: psychophysiologic Qualified Code(s): F51.04 - Psychophysiologic insomnia Plan: Sleep hygiene reinforced Continue Trazodone 50 mg Q HS PRN (6) Anxiety: Code(s): F41.9 - Anxiety disorder, unspecified Category: Medical Plan: Continue Lorazepam 0.5 mg TID PRN although patient has expressed her reluctance to take this often due to her fear and concerns about developing dependence on the medication She does not wish to be prescribed anything else that might cause her to gain a lot of weight (7) Depression: Code(s): F32.A - Depression, unspecified Category: Medical Qualifiers: Depression Type: major depressive disorder Major depression recurrence: recurrent Active/Remission status: currently active Major depression episode severity: severe Psychotic features: without psychotic features Qualified Code(s): F33.2 - Major depressive disorder, recurrent severe without psychotic features Plan: Continue Sertraline 100 mg QD (patient reports that she was doing well on Citalopram in the past but she gained a lot of weight while on the Rx and the weight gain made her feel more depressed) Follow up with psychiatry as scheduled (8) Smoker: Code(s): F17.200 - Nicotine dependence, unspecified, uncomplicated Category: Social Hx Plan: Patient is counseled again on complete smoking cessation Plan Follow-up in 4 months Orders: Orders Lipid Panel 04/17/25 E78.00 - Pure hypercholesterolemia, unspecified Microalbumin, Random (w Creat) 04/17/25 E11.9 - Type 2 diabetes mellitus without complications Hemoglobin A1c 04/17/25 E11.9 - Type 2 diabetes mellitus without complications TSH reflex Free T4 04/17/25 E78.00 - Pure hypercholesterolemia, unspecified Vitamin B12 and Folate 04/17/25 E53.8 - Deficiency of other specified B group vitamins Complete Blood Count Auto Diff 04/17/25 D64.9 - Anemia, unspecified Comprehensive [place]. Panel Fast 04/17/25 E78.00 - Pure hypercholesterolemia, unspecified UA CC w/rflx Micro + Cult 04/17/25 R30.0 - Dysuria Vitamin D 25-OH Total 04/17/25 E55.9 - Vitamin D deficiency, unspecified Referrals Podiatry Referral E11.9 - Type 2 diabetes mellitus without complications Urology Referral N32.81 - Overactive bladder
== END 2025-04-17 15:10 | disposition home or self-care (01) ==
LOC: HO.HMCH 14:15
PROVIDERS: PCP Internal Medicine; Visit Provider Internal Medicine
DX: E10.65 Type 1 diabetes mellitus with hyperglycemia (principal); F33.2 Major depressive disorder, recurrent severe without psychotic features; K29.70 Gastritis, unspecified, without bleeding; E55.9 Vitamin D deficiency, unspecified; N32.81 Overactive bladder; F51.04 Psychophysiologic insomnia; F41.9 Anxiety disorder, unspecified; F17.200 Nicotine dependence, unspecified, uncomplicated

== ENCOUNTER → 2025-04-17 14:14 | Outpatient (BNVA) | payer MEDICARE, MEDICAID, SELFPAY | PROVIDERS: PCP Internal Medicine; Visit Provider Internal Medicine | DX: E10.65 Type 1 diabetes mellitus with hyperglycemia (principal); K29.70 Gastritis, unspecified, without bleeding; E55.9 Vitamin D deficiency, unspecified; N32.81 Overactive bladder; F51.04 Psychophysiologic insomnia; F41.9 Anxiety disorder, unspecified; F33.2 Major depressive disorder, recurrent severe without psychotic features; F17.200 Nicotine dependence, unspecified, uncomplicated; Z71.6 Tobacco abuse counseling | CPT/HCPCS: 96127 ==

== ENCOUNTER 2025-05-02 13:42 | Outpatient (AMB) | payer MEDICARE, MEDICAID, SELFPAY ==
--- NOTE | 2025-05-02 14:52 | MHC.AMDMED ---
Intake Intake Visit Reasons: Type 1 diabetes mellitus with hyperglycemia Allergies No Known Allergies (No Known Allergies*) Allergy (Verified 04/17/25 14:48) HPI Comprehensive Diabetes Asmnt Most Recent Diabetes Results: Microalb/Creat Ratio TNP ug/mg cr 12/26/19 Cholesterol 192 mg/dL 06/26/22 HDL Cholesterol 69 mg/dL Δ 06/26/22 Triglycerides 91 mg/dL 06/26/22 Creatinine, (0.5-1.4) 0.94 mg/dL 06/11/24 BUN, (9-16) 13 mg/dL 06/11/24 Sodium, (135-145) 139 mmol/L 06/11/24 Potassium, (3.3-5.1) 3.9 mmol/L 06/11/24 Chloride, (96-108) 106 mmol/L 06/11/24 Carbon Dioxide, (22-29) 25 mmol/L 06/11/24 Calcium, (8.4-10.2) 10.3 mg/dL H 06/11/24 AST, (5-31) 14 U/L 06/11/24 ALT, (0-31) 10 U/L 06/11/24 Total Protein, (6.5-8.0) 6.2 g/dL L 06/11/24 Albumin, (3.5-5.0) 3.7 g/dL 06/11/24 [facility] Medical History Skin lesion of foot Skin lesion Insomnia Depression Breast cancer screening Smoker Anxiety Smoker in home Vitamin D deficiency Gastritis Type 1 diabetes mellitus with hyperglycemia, with long-term current use of insulin 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 Mother No problems noted. Paternal Grandmother Diabetes Social History Household Members: Significant Other and Children Household Members Other:: boyfriend, son Housing: Apartment Alcohol intake: never Patient Tobacco Use Status: Current everyday Tobacco user Tobacco use type: Cigarette Cigarette Packs Per Day: 2 Substance Use Type: Marijuana service: No Current occupational status: unemployed Cognitive needs: No Hearing needs: No Vision needs: No Assessment & Plan Assessment & Plan (1) Diabetes type 1, uncontrolled: Code(s): E10.65 - Type 1 diabetes mellitus with hyperglycemia Plan: Personal Continuous Glucose Monitor: Patients CGM information reviewed, Pt uses Matt 3+ with reader Patient had 6 days worth of data, sensor has given error messages regarding connectivity. Called [employer] customer service they are sending patient replacement sensor. Unable to assess if readings on sensor are correct since sensor had multiple error messages Discussed with patient the importance of waiting at least 2 hours in between doses of rapid acting insulin to prevent hypoglycemia Patient reports she does not feel symptoms of hypoglycemia, explained to patient that hypoglycemia long-term affects of hypoglycemia long-term effects of hypoglycemia Cognitive Impairment:Low blood sugar can impair brain function, leading to memory lapses, difficulty concentrating, and potentially contributing to dementia or Alzheimer's disease.:Repeated episodes of low blood sugar can make it harder for the body to recognize when blood sugar is low, increasing the risk of severe, life-threatening hypoglycemia. Increased Risk of Seizures and Coma:If left untreated, severe hypoglycemia can progress to seizures and coma Patient given sample Matt 3+ sensor at today's visit to replace defective Matt 3+ sensors Patient also given list of composition weatherboard installer and director of strategic programs's Patient will follow-up with peer educator in 1 month Portions of this note were created using voice recognition software, please excuse any words or phrases that may have been misinterpreted. Patient Instructions: Patient instruction: CGM provides information on blood glucose control throughout the day, including hyperglycemia and hypoglycemia. ? Continue to monitor blood glucose as instructed. Follow nutrition guidelines provided. Report any discomfort promptly to health care provider. ?Stay well-hydrated. You can bathe ,shower, swim and exerce while wearing the glucose sensor. Do not submerge glucose sensor in water for more than 30 minutes. Remove sensor for MRI or CAT scan. Avoid Xray machine in airports - remove sensor or request wand Coding Level of Care Code Est Pt Level 1 (18888) Diagnoses Diabetes type 1, uncontrolled E10.65
== END 2025-05-02 15:00 | disposition home or self-care (01) ==
LOC: HO.ENCR 13:43
PROVIDERS: PCP Internal Medicine; Visit Provider Registered Nurse Diabetes Educator
DX: E10.65 Type 1 diabetes mellitus with hyperglycemia (principal)

== ENCOUNTER → 2025-05-02 13:42 | Outpatient (BNVA) | payer MEDICARE, MEDICAID, SELFPAY | PROVIDERS: PCP Internal Medicine; Visit Provider Registered Nurse Diabetes Educator | DX: E10.65 Type 1 diabetes mellitus with hyperglycemia (principal); Z79.4 Long term (current) use of insulin; F17.210 Nicotine dependence, cigarettes, uncomplicated | CPT/HCPCS: 99211 ==

== ENCOUNTER 2025-06-26 15:14 | Outpatient (AMB) | payer MEDICARE, MEDICAID, SELFPAY ==
--- NOTE | 2025-06-26 15:46 | MHC.AMDMED ---
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 Mother No problems noted. Paternal Grandmother Diabetes Social History Household Members: Significant Other and Children Household Members Other:: boyfriend, son Housing: Apartment Alcohol intake: never Patient Tobacco Use Status: Current everyday Tobacco user Tobacco use type: Cigarette Cigarette Packs Per Day: 2 Substance Use Type: Marijuana service: No Current occupational status: unemployed Cognitive needs: No Hearing needs: No Vision needs: No Assessment & Plan Assessment & Plan (1) Diabetes type 1, uncontrolled: Code(s): E10.65 - Type 1 diabetes mellitus with hyperglycemia Plan: Personal Continuous Glucose Monitor: Patients CGM information reviewed, Patient uses freestyle Matt 3+ Matt with reader, over the weekend patient the freestyle Matt 3 reader was damaged. We are unable to get glucose data from reader at today's visit Patient did report that in the past 2 weeks her family has had to use 2 glucose up pens in the morning due to extreme hypoglycemia Patient reports she is taking Tresiba 26 units daily, last dose of Humalog is usually between 6 and 7 p.m. Patient is unclear if she is taking Tresiba U 200 or Tresiba U 100 she has both prescribed. Instructed patient to inject Tresiba 18 units daily, starting tonight I will call patient on Thursday to see if overnight hypoglycemia is resolved Message sent to provider to prescribe new glucagon pens At today's visit we discussed patient resuming insulin pump therapy with Omnipod insulin pump Patient is not interested in resuming insulin pump therapy with T slim due to trouble with infusion set tubing No glucose data to review at today's visit Patient given new freestyle Matt 3+ reader Patient able to insert sensor independently at home without issue.? Portions of this note were created using voice recognition software, please excuse any words or phrases that may have been misinterpreted. Coding Level of Care Code Est Pt Level 1 (90040) Diagnoses Diabetes type 1, uncontrolled E10.65
== END 2025-06-26 15:51 | disposition home or self-care (01) ==
LOC: HO.ENCR 15:15
PROVIDERS: PCP Internal Medicine; Visit Provider Registered Nurse Diabetes Educator
DX: E10.65 Type 1 diabetes mellitus with hyperglycemia (principal)

== ENCOUNTER → 2025-06-26 15:14 | Outpatient (BNVA) | payer MEDICARE, MEDICAID, SELFPAY | PROVIDERS: PCP Internal Medicine; Visit Provider Registered Nurse Diabetes Educator | DX: E10.65 Type 1 diabetes mellitus with hyperglycemia (principal); Z79.4 Long term (current) use of insulin | CPT/HCPCS: 99211 ==

== ENCOUNTER 2025-06-29 14:40 | Outpatient (AMB) | payer MEDICARE, MEDICAID, SELFPAY ==
--- NOTE | 2025-06-29 15:02 | A.OFFVIS_ITS ---
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 Instructions: Doctor's Order insulin aspart U-100 3-5 units tid with meals subcutaneously 3 times a day; 30 days NS insulin syringe-needle U-100 As directed prn pump failure up to qid lorazepam 0.5 mg PO TID PRN 30 days omeprazole 20 mg PO DAILY 90 days pen needle, diabetic qid sertraline 100 mg PO DAILY 90 days trazodone 50 mg PO BEDTIME PRN 30 days Tresiba FlexTouch U-100 (insulin degludec) 25 units (0.25 mL) subcut DAILY NS Tresiba FlexTouch U-200 (insulin degludec) 25 units (0.125 mL) subcut DAILY 30 days NS urine glucose-ketones test As directed vibegron (Gemtesa) 75 mg PO DAILY HPI Comments Details: Rita presents as a new patient evaluation for lower urinary tract symptoms of frequency. The patient was unable to provide a urine specimen on initial evaluation with medical records specialist in bladder scan PVR is 106 mL. Comorbidity diabetes history of tobacco use. History of Present Illness The patient is a 59-year-old female presenting with lower urinary tract symptoms. She reports experiencing urinary incontinence for approximately six months, characterized by urgency and inability to reach the bathroom in time, necessitating the use of pads which she finds ineffective. The patient has adjusted her seating arrangement at home to be closer to the bathroom due to the urgency of her symptoms. The patient has a history of diabetes and tobacco use, which may contribute to her current urinary symptoms. Results - Urinalysis: Negative for leukocytes and blood Plan 1. Lower Urinary Tract Symptoms - Plan to reduce caffeine intake to no more than 20 ounces per day. - Prescription for Gemtesa 75 mg daily. - Schedule renal ultrasound, office cystoscopy, and pelvic exam for further evaluation. 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 Mother No problems noted. Paternal Grandmother Diabetes Social History Household Members: Significant Other and Children Household Members Other:: boyfriend, son Housing: Apartment Alcohol intake: never Patient Tobacco Use Status: Current everyday Tobacco user Tobacco use type: Cigarette Cigarette Packs Per Day: 2 Substance Use Type: Marijuana service: No Current occupational status: unemployed Cognitive needs: No Hearing needs: No Vision needs: No Review of Systems Const All systems reviewed & are unremarkable except as noted in HPI and below Reports no additional complaints Eyes Reports no additional complaints ENT Reports no additional complaints Card Reports no additional complaints Resp Reports no additional complaints GI Reports no additional complaints Reports as per HPI Musc Reports no additional complaints Skin/Breast Reports system reviewed and no additional complaints, except as documented Neuro Reports no additional complaints Psych Reports no additional complaints Endo Reports no additional complaints Jose D/Lymph Reports no additional complaints Aller/Immun Reports no additional complaints Physical Exam Const General: cooperative, healthy appearing and no acute distress Orientation/consciousness: patient oriented x3 HEENT Head: Yes normal to inspection, Yes normocephalic and Yes atraumatic Eyes Conjunctivae: conjunctivae normal Neck Neck: Yes normal visual inspection and Yes trachea midline Chest Chest palpation & inspection: normal inspection of the chest Resp Effort & Inspection: normal respiratory effort GI Inspection: Yes normal to inspection Neuro General: patient oriented x3 Psych Appearance: grossly normal Office Procedures Post Void Residual Post Residual Void Post Void Residual (PVR): [id number] Void Residual by ultrasound Results AMB Urinalysis, Automated UA Leukoctes 0 Rudolph/uL Last Edit by Janice Quinones on 06/29/25 17:13 UA Nitrite Negative Last Edit by Janice Quinones on 06/29/25 17:13 UA Urobilinogen 17 mg/dL Last Edit by Janice Quinones on 06/29/25 17:13 UA Protein 15 mg/dL Last Edit by Janice Quinones on 06/29/25 17:13 UA pH 6.0 Last Edit by Janice Quinones on 06/29/25 17:13 UA Blood 0 [place]/uL Last Edit by Janice Quinones on 06/29/25 17:13 UA Specific [place] 1.020 Last Edit by Janice Quinones on 06/29/25 17:13 UA Ketone Negative Last Edit by Janice Quinones on 06/29/25 17:13 UA Bilirubin 0 mg/dL Last Edit by Janice Quinones on 06/29/25 17:13 UA Glucose 0 mg/dL Last Edit by Janice Quinones on 06/29/25 17:13 Results Reviewed Results Reviewed: Laboratory Last Values Urine pH (Auto) 6.0 06/29/25 15:41 Specific [place] (Auto) 1.020 06/29/25 15:41 Urine Protein (Auto) 15 mg/dL 06/29/25 15:41 Glucose (UA)(Auto) 0 mg/dL 06/29/25 15:41 Urine Ketones (Auto) Negative 06/29/25 15:41 Urine Blood (Auto) 0 [place]/uL 06/29/25 15:41 Urine Nitrite (Auto) Negative 06/29/25 15:41 Urine Bilirubin (Auto) 0 mg/dL 06/29/25 15:41 Urine Urobilinogen (Auto) 17 mg/dL 06/29/25 15:41 Leukocyte Esterase (Auto) 0 Rudolph/uL 06/29/25 15:41 Assessment & Plan Assessment & Plan (1) Overactive bladder: Code(s): N32.81 - Overactive bladder Category: Medical (2) Urge incontinence of urine: Code(s): N39.41 - Urge incontinence Category: Medical Plan Plan 1. Lower Urinary Tract Symptoms - Plan to reduce caffeine intake to no more than 20 ounces per day. - Prescription for Gemtesa 75 mg daily. - Schedule renal ultrasound, office cystoscopy, and pelvic exam for further evaluation. Orders: Orders AMB Urinalysis Automated 06/29/25 N32.81 - Overactive bladder US renal BI Today N39.41 - Urge incontinence AMB Post Void Residual by ultrasound 06/29/25 N3.81 - Overactive bladder Medications: New vibegron (Gemtesa) 75 mg PO DAILY 30 tabs 3RF Patient Instructions: The patient had an opportunity to ask questions regarding treatment plan. The patient expressed understanding and agreement with the above treatment plan. The patient is aware they should contact our office by phone for worsening of their current condition or the appearance of new symptoms. Compliance is encoura ged with any medications and followup testing that is ordered. It is a privilege to be allowed the opportunity to participate in the urologic care of your patient. If you have any questions or concerns regarding treatment for the above conditions please do not hesitate to contact me. The office telephone contact is [phone]. This note is constructed in part using voice recognition software. While every effort has been made to ensure accuracy money order clerk errors may have been included. Yours sincerely, Jennifer Rabago MD Scribe Plan - Not visible on output: Patient was informed and verbally consented to the use of an ambient scribe for clinic note documentation during this visit. Coding Level of Care Code New Pt Level 4 (37445) Diagnoses Overactive bladder N32.81 Urge incontinence of urine N39.41 CPT Codes Post Residual Void - PVR CPT Code: 93033-Fpjl Void Residual by ultrasound ([id number])
== END 2025-06-29 16:21 | disposition home or self-care (01) ==
PROVIDERS: PCP Internal Medicine; Visit Provider Urology
DX: N32.81 Overactive bladder (principal)
CPT/HCPCS: 99204

== ENCOUNTER → 2025-06-29 14:40 | Outpatient (BNVA) | payer MEDICARE, MEDICAID, SELFPAY | PROVIDERS: PCP Internal Medicine; Visit Provider Urology | DX: N32.81 Overactive bladder (principal); N39.41 Urge incontinence | CPT/HCPCS: 51798; 81003; 99202 ==

== ENCOUNTER 2025-08-27 13:47 | Outpatient (AMB) | payer MEDICARE, MEDICAID, SELFPAY ==
--- NOTE | 2025-08-27 14:08 | A.OFFVIS_ITS ---
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 Mother No problems noted. Paternal Grandmother Diabetes Social History Household Members: Significant Other and Children Household Members Other:: boyfriend, son Housing: Apartment Alcohol intake: never Patient Tobacco Use Status: Current everyday Tobacco user Tobacco use type: Cigarette Cigarette Packs Per Day: 2 Substance Use Type: Marijuana service: No Current occupational status: unemployed Cognitive needs: No Hearing needs: No Vision needs: No Assessment & Plan Assessment & Plan (1) Diabetes type 1, uncontrolled: Code(s): E10.65 - Type 1 diabetes mellitus with hyperglycemia Plan: Pump Assessment: Type of DM: Type 1 Dx at age: 45 years old Previous DKA: Unknown Current Insulin Rx: MDI Patient takes insulin as prescribed: Yes Patient? checks BG Matt 3+ sensor Downloaded meter today, patient did not bring reader to today's visit Patient? reports glycemic control as: Poor Most recent Hgb A1C: 7.7% Frequency of low B to 5 times a week Low BG treatment: Coffee with sweet cream Frequency of high BG: Daily Does patient check Ketones? Will discuss at next visit Has pt been on a pump in the past? T slim with basal IQ Reviewed insulin pump basics today with Patient. Explained pros and cons of insulin pumps. Showed pt various pumps, infusion sets, and cgms currently available. Reviewed need to wear pump 24/7 and need to change infusion set every 3 days. Also stressed importance of frequent BG checks, 4x daily minimum or use pump that is integrated with CGM.? TDD: 60 units Basal rate was 1 unit/hour Patient uses insulin to carb ratio of 1-12 Correction factor of 1-60 Target goal 120 mg/dL Patient demonstrated motivation for continued insulin pump education and understands the need to complete education prior to starting insulin pump for best outcome. At today's visit patient agreed to do trial for Omnipod 5 with Dexcom G7 Portions of this note were created using voice recognition software, please excuse any words or phrases that may have been misinterpreted. Medications: Discontinued insulin pump cart,auto,BT,G6/7 (Omnipod 5 G6-G7 Pods (Gen 5) subcutaneous cartridge) Discontinued Reason: Doctor's Order As directed 5 ea 0RF insulin inserter promotional item cart,BT,G6/L2-cntr (Omnipod 5 Intro Kit(G6/Eweby1Lwkg) subcutaneous cartridge) Discontinued Reason: Doctor's Order As directed 1 ea 0RF insulin inserter promotional item cart,aut,G6/7,cntr (Omnipod 5 G6-G7 Intro Kit(Gen 5) subcutaneous cartridge and controller) Discontinued Reason: Doctor's Order As directed 1 ea 2RF Patient Instructions: Follow-up with practical nurse clinical coordinator for Omnipod 5 trial, with Dexcom G6/G7 sensors Coding Level of Care Code Est Pt Level 1 (75802) Diagnoses Diabetes type 1, uncontrolled E10.65
== END 2025-08-27 14:40 | disposition home or self-care (01) ==
LOC: HO.ENCR 13:48
PROVIDERS: PCP Internal Medicine; Visit Provider Registered Nurse Diabetes Educator
DX: E10.65 Type 1 diabetes mellitus with hyperglycemia (principal)

== ENCOUNTER → 2025-08-27 13:47 | Outpatient (BNVA) | payer MEDICARE, MEDICAID, SELFPAY | PROVIDERS: PCP Internal Medicine; Visit Provider Registered Nurse Diabetes Educator | DX: E10.65 Type 1 diabetes mellitus with hyperglycemia (principal); E10.22 Type 1 diabetes mellitus with diabetic chronic kidney disease; E10.649 Type 1 diabetes mellitus with hypoglycemia without coma; Z79.4 Long term (current) use of insulin; Z96.41 Presence of insulin pump (external) (internal) | CPT/HCPCS: 99211 ==